=== PATIENT | male | born 1960 | race Caucasian/White ===

== ENCOUNTER 2017-06-23 10:12 | Outpatient (CLI) | payer SELFPAY | END 2017-06-23 10:13 | disposition critical access hospital (66) | LOC: EMS 10:12 | PROVIDERS: ATTEND Surgery | DX: R58 Hemorrhage, not elsewhere classified (principal); R53.1 Weakness; R63.4 Abnormal weight loss | CPT/HCPCS: A0425; A0429 ==

== ENCOUNTER 2017-06-23 10:32 | Emergency (ER) | payer SELFPAY ==
[2017-06-23 11:31] LABS: BASOPHILS # (AUTO) 0.1 10^3/uL (0.0-0.1); BASOPHILS % (AUTO) 0.7 %; EOSINOPHILS # (AUTO) 0.1 10^3/uL (0.0-0.7); EOSINOPHILS % (AUTO) 0.8 %; HGB - HEMOGLOBIN 10.7 g/dL (14.0-18.0); LYMPHOCYTES # (AUTO) 0.8 10^3/uL (1.5-3.5); LYMPHOCYTES % (AUTO) 8.6 %; MEAN CORPUSCULAR HEMOGLOBIN 23.8 pg (27.0-31.0); MEAN CORPUSCULAR HGB CONC 32.1 g/dL (32.0-36.0); MEAN CORPUSCULAR VOLUME 73.9 fL (80.0-94.0); MEAN PLATELET VOLUME 7.6 fL (7.4-11.4); MONOCYTES # (AUTO) 0.8 10^3/uL (0.0-1.0); NEUTROPHILS % (AUTO) 81.9 %; PLT - PLATELET COUNT 223 10^3/uL (130-450); RED BLOOD COUNT 4.49 10^6/uL (4.70-6.10); RED CELL DISTRIBUTION WIDTH 17.4 % (12.0-15.0); WHITE BLOOD COUNT 9.8 x10^3/uL (4.8-10.8)
[2017-06-23 11:46] LABS: BILIRUBIN,URINE NEGATIVE (NEGATIVE); GLUCOSE, URINE (UA) NEGATIVE (NEGATIVE); KETONES,URINE (UA) NEGATIVE (NEGATIVE); LEUKOCYTE ESTERASE, URINE LARGE (NEGATIVE); NITRITE,URINE POSITIVE (NEGATIVE); OCCULT BLOOD,URINE LARGE (NEGATIVE); PH,URINE 5.5 PH (5.0-7.5); PROTEIN,URINE 30 mg/dL (NEGATIVE); UROBILINOGEN,URINE 0.2 (NORMAL) E.U./dL (NORMAL)
[2017-06-23 11:48] LABS: CLARITY,URINE CLOUDY (CLEAR)
[2017-06-23 11:52] LABS: ALBUMIN 2.8 g/dL (3.2-5.5); ALBUMIN/GLOBULIN RATIO 0.7 (1.0-2.2); ALKALINE PHOSPHATASE 100 IU/L (42-121); ALT ALANINE AMINOTRANSFERASE 11 IU/L (10-60); AST ASPARTATE AMINOTRANSFERASE 12 IU/L (10-42); BILIRUBIN,TOTAL 1.2 mg/dL (0.2-1.0); BUN - BLOOD UREA NITROGEN 11 mg/dL (6-20); CALCIUM 8.4 mg/dL (8.5-10.3); CARBON DIOXIDE - CO2 23 mmol/L (21-32); CHLORIDE 98 mmol/L (101-111); CREATININE 0.9 mg/dL (0.6-1.2); GFR - MDRD 88 (>89); GLUCOSE 95 mg/dL (70-100); LIPASE < 10 U/L (22-51); SODIUM 130 mmol/L (135-145); TOTAL PROTEIN 6.9 g/dL (6.7-8.2)
[2017-06-23 11:57] LABS: BACTERIA,URINE Many /HPF (None Seen); SQUAMOUS EPITHELIAL CELL,UR FEW Squamous (<= Few)
--- NOTE | 2017-06-23 12:05 | ED Physician Documentation ---
History of Present Illness - Stated complaint Stated Complaint: WOUND - Chief complaint Chief Complaint: Wound - History obtained from History obtained from: Patient - History of Present Illness Timing: Last night Pain level max: 0 Pain level now: 0 Improved by: nothing Worsened by: nothing - Additonal information Additional information: States had a bowel resection approx 3 years ago, complicated by mutliple intraabdominal abscesses at that time. States no fevers. States had 2 small blisters on his abdomen last night, one has spontaneously drained. The other is still present. Patient is not currently following up with GI. He was seen Dr. Culver at [facility] in [place]. Last surgery was at [facility] as well. Review of Systems Ten Systems: 10 systems reviewed and negative Constitutional: reports: Chills. denies: Fever Ears: denies: Ear pain Nose: denies: Rhinorrhea / runny nose, Congestion Throat: denies: Sore throat Cardiac: denies: Chest pain / pressure Respiratory: denies: Cough, Wheezing GI: denies: Abdominal Pain, Nausea, Vomiting, Diarrhea Skin: denies: Rash Musculoskeletal: denies: Neck pain, Back pain Neurologic: denies: Headache PD PAST MEDICAL HISTORY - Past Medical History Cardiovascular: None Respiratory: None Neuro: None Endocrine/Autoimmune: None GI: Ulcers, Crohn's disease : None HEENT: None Psych: None Musculoskeletal: None Derm: None - Past Surgical History Past Surgical History: Yes General: Appendectomy Ortho: Arthroscopic surgery HEENT: Tonsil/Adenoidectomy - Present Medications Home Medications: Ambulatory Orders Medication Instructions Recorded Confirmed Ascorbate Calcium [Vitamin C] 500 mg PO DAILY 07/10/14 08/04/14 Balsalazide Disodium 750 mg PO BID 07/10/14 08/04/14 Cholecalciferol (Vitamin D3) 1,000 units PO DAILY 07/10/14 08/04/14 [Vitamin D3] Ciprofloxacin HCl [Cipro] 500 mg PO BID #14 tablet 07/10/14 08/04/14 Dexamethasone [Decadron] 4 mg PO BID #10 tablet 07/10/14 08/04/14 Iron,Carbonyl/Vit C/Vit B12/FA 1 tab PO DAILY 07/10/14 08/04/14 [Iron 100 Plus Tablet] Multivitamin [Multivitamins] 1 each PO DAILY 07/10/14 08/04/14 Promethazine [Phenergan] 25 mg PO Q6H PRN #20 tablet 07/10/14 08/04/14 Metronidazole [Flagyl] 500 mg PO BID #14 tablet 07/27/14 08/04/14 Oxycodone HCl/Acetaminophen 1 - 2 each PO Q6H PRN #15 tablet 07/27/14 08/04/14 [Percocet 5-325 mg Tablet] levoFLOXacin [Levaquin] 500 mg PO QD #7 tablet 07/27/14 08/04/14 - Allergies Allergies/Adverse Reactions: Allergies Allergy/AdvReac Type Severity Reaction Status Date / Time Penicillins Allergy Severe "HEART Verified 06/23/17 10:44 STOPPED",SEVERE RASH peanut AdvReac Unknown Verified 06/23/17 10:45 raisins, pees, alcocer AdvReac Unknown Uncoded 06/23/17 10:45 - Social History Does the pt smoke?: No Smoking Status: Never smoker Does the pt drink ETOH?: No Does the pt have substance abuse?: No - Immunizations Immunizations are current?: No - POLST Patient has POLST: No PD ED PE NORMAL - Vitals Vital signs reviewed: Yes - General General: Alert and oriented X 3, No acute distress - HEENT HEENT: Moist mucous membranes - Neck Neck: Supple, no meningeal sign - Cardiac Cardiac: RRR - Respiratory Respiratory: No respiratory distress, Clear bilaterally - Abdomen Abdomen: Soft, Other (suprapubic erythema and swelling 3x4cm. TTP. mild induration. NVI. no crepitus) - Derm Derm: Warm and dry - Neuro Neuro: Alert and oriented X 3 - Psych Psych: Normal mood, Normal affect Results - Vitals Vitals: Vital Signs - 24 hr 06/23/17 06/23/17 06/23/17 10:37 11:51 12:08 Temperature 37.6 C H Heart Rate 79 86 Respiratory 15 16 Rate Blood Pressure 103/65 105/63 O2 Saturation 97 97 06/23/17 06/23/17 12:54 15:09 Temperature Heart Rate 90 75 Respiratory 26 H 23 Rate Blood Pressure 101/64 97/60 O2 Saturation 98 Oxygen O2 Source Room air - Labs Labs: Microbiology 06/23/17 12:43 Wound Culture - Preliminary Abdomen Laboratory Tests 06/23/17 06/23/17 06/23/17 11:24 11:24 11:24 WBC 9.8 RBC 4.49 L Hgb 10.7 L Hct 33.2 L MCV 73.9 L MCH 23.8 L MCHC 32.1 RDW 17.4 H Plt Count 223 MPV 7.6 Neut # 8.0 H Lymph # 0.8 L [place] # 0.8 Eos # 0.1 Baso # 0.1 Absolute Nucleated RBC 0.00 Nucleated RBC % 0.0 Sodium 130 L Potassium 3.9 Chloride 98 L Carbon Dioxide 23 Anion Gap 9.0 BUN 11 Creatinine 0.9 Estimated GFR (MDRD) 88 L Glucose 95 Lactic Acid Calcium 8.4 L Total Bilirubin 1.2 H AST 12 ALT 11 Alkaline Phosphatase 100 Total Protein 6.9 Albumin 2.8 L Globulin 4.1 Albumin/Globulin Ratio 0.7 L Lipase < 10 L TSH 0.55 Urine Color Urine Clarity Urine pH Ur Specific [place] Urine Protein Urine Glucose (UA) Urine Ketones Urine Occult Blood Urine Nitrite Urine Bilirubin Urine Urobilinogen Ur Leukocyte Esterase Urine RBC Urine WBC Ur Squamous Epith Cells Urine Bacteria Ur Microscopic Review Urine Culture Comments 06/23/17 06/23/17 11:40 13:27 WBC RBC Hgb Hct MCV MCH MCHC RDW Plt Count MPV Neut # Lymph # [place] # Eos # Baso # Absolute Nucleated RBC Nucleated RBC % Sodium Potassium Chloride Carbon Dioxide Anion Gap BUN Creatinine Estimated GFR (MDRD) Glucose Lactic Acid 0.8 Calcium Total Bilirubin AST ALT Alkaline Phosphatase Total Protein Albumin Globulin Albumin/Globulin Ratio Lipase TSH Urine Color DARK YELLOW Urine Clarity CLOUDY Urine pH 5.5 Ur Specific [place] 1.025 Urine Protein 30 H Urine Glucose (UA) NEGATIVE Urine Ketones NEGATIVE Urine Occult Blood LARGE H Urine Nitrite POSITIVE H Urine Bilirubin NEGATIVE Urine Urobilinogen 0.2 (NORMAL) Ur Leukocyte Esterase LARGE H Urine RBC 11-25 H Urine WBC >25 H Ur Squamous Epith Cells FEW Squamous Urine Bacteria Many H Ur Microscopic Review INDICATED Urine Culture Comments INDICATED - Rads (name of study) CT abd/pelvis Radiology: Prelim report reviewed, EMP read contemporaneously, See rad report ( 1. Several loops of small bowel in the lower abdomen showing wall thickening, mucosal hyperenhancement, and surrounding hyperemia and fat stranding compatible with acute inflammatory bowel disease. 2. Several borderline dilated loops of small bowel in the upper abdomen with fluid levels may reflect low- grade/partial obstruction secondary to stricture or possibly functional obstruction. 3. Several interloop fistulae seen within small bowel loops in the lower abdomen. Probable right abdominal enterocolic fistula also noted as described above. 5. No intra-abdominal abscess. 6. An anterior abdominal wall preperitoneal abscess collection is seen extending to the skin surface. Possible enterocutaneous fistula between an anterior inflamed small bowel loop and this central preperitoneal abscess cavity. 7. Probable enterovesical fistula as described above with associated reactive cystitis. 8. Layering fluid seen within the rectum reflects diarrhea. ) PD MEDICAL DECISION MAKING - ED course Complexity details: reviewed results, re-evaluated patient, considered differential, d/w patient, d/w outside solar sales consultant ED course: Patient is a 56-year-old gentleman with a long history of Crohn's disease that is not currently following up as an outpatient or taking medications for Crohn' s. 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 Discussed the case with Dr. Castelan, [facility] GI at [phone] and recommends admission to the hospitalist service at [facility]. Patient was started on moxifloxacin and vancomycin here. I then spoke with Dr. Patricia, internal medicine at [facility] in [place] who graciously accepts in transfer at 1500. Patient will be transferred to [facility] in [place]. This document was made in part using voice recognition software. While efforts are made to proofread this document, sound alike and grammatical errors may occur. Departure - Departure Disposition: 02 Transfer Acute Care Hosp Clinical Impression: Vesico-intestinal fistula, Enterocutaneous fistula, Entero-enteric fistula, Abscess UTI (urinary tract infection) Qualifiers: Urinary tract infection type: acute cystitis Hematuria presence: without hematuria Qualified Code(s): N30.00 - Acute cystitis without hematuria Exacerbation of Crohn's disease Qualifiers: Digestive disease complication type: unspecified complication Qualified Code(s) : K50.919 - Crohn's disease, unspecified, with unspecified complications Condition: Stable
[2017-06-23] MEDS ORDERED: SODIUM CHLORIDE 0.9% 1,000 ML IV ONE ×2 (12:14)
[2017-06-23] MEDS ORDERED: IOPAMIDOL-300 100 ML VIAL ONE (12:41)
[2017-06-23] MEDS ORDERED: VANCOMYCIN INJ 1 GM in SODIUM CHLORIDE 0.9% 250 ML IV STA (13:06)
[2017-06-23] MEDS ORDERED: MOXIFLOXACIN 400MG/250ML IV 400 MG/250 ML BAG IV STA (13:06)
[2017-06-23] MEDS ORDERED: IOPAMIDOL-300 100 ML VIAL IVP ONE (13:08)
--- NOTE | 2017-06-23 13:55 | CT Report ---
EXAM: CT ABDOMEN AND PELVIS EXAM DATE: 06/23/2017 01:07 PM. CLINICAL HISTORY: Lower abd pain, swelling, h/o intra-abd abscess. COMPARISONS: 07/27/2014. TECHNIQUE: Routine helical CT imaging was performed through the abdomen and pelvis. IV contrast: ISOV UE 300 100mL. Enteric contrast: No. Reconstructions: Coronal and sagittal. In accordance with CT protocol optimization, one or more of the following dose reduction techniques w ere utilized for this exam: automated exposure control, adjustment of mA and/or KV based on patient s ize, or use of iterative reconstructive technique. FINDINGS: Lung Bases: Unchanged calcified granuloma at the right base. No new consolidation. No pleural effusio n. Liver: Normal. No masses. Gallbladder/Bile Ducts: Gallstone seen in the gallbladder. No evidence for wall thickening or pedicle cystic fluid. No biliary dilation. Spleen: Unchanged mild splenic lead to 14 cm. No focal splenic lesion seen. Pancreas: Normal. Adrenal Glands: Normal. Kidneys: Normal. No masses or hydronephrosis. Peritoneal Cavity/Bowel: Few borderline dilated small bowel loops are seen with fluid levels. There i s also few central loops of small bowel in the mid abdomen that show wall thickening with mucosal hyp erenhancement and hyperemia compatible with acute inflammation. Tethering of multiple small bowel loo ps seen in the midabdomen with suggestion of multiple interloop fistulous connections within the pinky l (3/57, 58). Possible enterocolic fistula seen between the right colon (3/58) and a small bowel loop in the midabdomen (3/60). No evidence for abscess within the intra-abdominal cavity. Few prominent/m ildly enlarged mesenteric lymph nodes are likely reactive. Pelvic Organs: Tethering of the bladder dome superiorly is seen with possible fistulous connection be tween the bladder dome and a right lower abdominal small bowel loop (3/59, 6/44). Foci of gas within the urinary bladder are seen as evidence of this. There is also urothelial enhancement of the bladder dome (3/74) which could reflect cystitis. Prostate and seminal vesicles otherwise normal. Layering f luid is seen in the rectum is evidence for diarrhea. Vasculature: No aneurysms or other significant abnormality. Bones: No significant abnormality. Other: There is rectus abdominis I stasis in the upper abdomen with central eventration containing se veral loops of small bowel. A midline lower abdominal rim-enhancing mixed gas and fluid collection is seen measuring approximately 2.8 x 5.7 cm (3/59) representing a midline preperitoneal abscess. Proba ble enterocutaneous fistulas associated with the abscess (3/59). IMPRESSION: 1. Several loops of small bowel in the lower abdomen showing wall thickening, mucosal hyperenhancemen t, and surrounding hyperemia and fat stranding compatible with acute inflammatory bowel disease. 2. Several borderline dilated loops of small bowel in the upper abdomen with fluid levels may reflect low-grade/partial obstruction secondary to stricture or possibly functional obstruction. 3. Several interloop fistulae seen within small bowel loops in the lower abdomen. Probable right abdo eleuterio enterocolic fistula also noted as described above. 5. No intra-abdominal abscess. 6. An anterior abdominal wall preperitoneal abscess collection is seen extending to the skin surface. Possible enterocutaneous fistula between an anterior inflamed small bowel loop and this central prep eritoneal abscess cavity. 7. Probable enterovesical fistula as described above with associated reactive cystitis. 8. Layering fluid seen within the rectum reflects diarrhea. RADIA The above findings were discussed with Dr. Messer by Dr. Rocco Krueger at 13:53 hrs on 06/23/17. Referring Provider Line: [phone] SITE ID: [id number]
[2017-06-23 16:27] VITALS: BP 94/51
== END 2017-06-23 16:17 | disposition short-term general hospital (02) ==
LOC: EDUNIT# → ED 10:32
DX: K63.2 Fistula of intestine (principal); N32.1 Vesicointestinal fistula; L02.211 Cutaneous abscess of abdominal wall; K50.919 Crohn's disease, unspecified, with unspecified complications; N30.00 Acute cystitis without hematuria; Z87.11 Personal history of peptic ulcer disease
CPT/HCPCS: 74177; 80053; 81001; 83605; 83690; 84443; 85025; 87070; 87077; 87086; 87181; 87205; 96361; 96365; 96366; 96367; 99284; 99285; J3370; Q9967; 36415; 81003

== ENCOUNTER 2017-06-23 16:20 | Outpatient (CLI) | payer SELFPAY | END 2017-06-23 16:21 | disposition short-term general hospital (02) | LOC: EMS 16:20 | PROVIDERS: ATTEND Surgery | DX: K63.2 Fistula of intestine (principal) | CPT/HCPCS: A0425; A0426 ==

== ENCOUNTER 2017-08-06 10:48 | Inpatient (IN) | payer SELFPAY ==
[2017-08-06] MEDS ORDERED: SODIUM CHLORIDE 0.9% 1,000 ML IV ONE (11:48)
[2017-08-06 12:14] LABS: CREATININE 0.8 mg/dL (0.6-1.2)
--- NOTE | 2017-08-06 12:40 | ED Physician Documentation ---
History of Present Illness - Stated complaint Stated Complaint: ABSCESS/BLEEDING - Chief complaint Chief Complaint: Wound - Additonal information Additional information: hx from pt and EMR and records from Prov Gregg 56 male hx crohns normally takes no meds for same (2/[address] to pay for, too young for medicare, too much income for medicaid, 's work does not provide him medical benefits) in 2014 had a enteric - cutaneous fistula and abscess and sepsis in June of this year developed now fistula and drainage - seen in [facility] ER, CT scan done - sent to [facility], had some hypotension, txed with vanco meropenem and flagyl, GI consulted, surgery consulted, no surgery needed, dc on prednisone and cipro and flagyl and had one fup with GI now done with ab and steroids pt returns to ED today with new heavy purulent dc from fustual site and abd pain and swelling no fever but tachy upon arrival no NV Review of Systems Constitutional: reports: Fatigue. denies: Fever Cardiac: denies: Chest pain / pressure Respiratory: denies: Dyspnea GI: reports: Abdominal Pain. denies: Nausea, Vomiting, Diarrhea Neurologic: denies: Generalized weakness Immunocompromised: denies: Immunocompromised PD PAST MEDICAL HISTORY - Past Medical History Cardiovascular: None Respiratory: None Neuro: None Endocrine/Autoimmune: None GI: Ulcers, Crohn's disease : None HEENT: None Psych: None Musculoskeletal: None Derm: None - Past Surgical History Past Surgical History: Yes General: Appendectomy Ortho: Arthroscopic surgery HEENT: Tonsil/Adenoidectomy - Present Medications Home Medications: Ambulatory Orders Medication Instructions Recorded Confirmed Budesonide [Budesonide EC] 9 mg PO DAILY 08/06/17 08/06/17 Sulfasalazine [Sulfasalazine Dr] 500 mg PO QID 08/06/17 08/06/17 - Allergies Allergies/Adverse Reactions: Allergies Allergy/AdvReac Type Severity Reaction Status Date / Time Penicillins Allergy Severe "HEART Verified 08/06/17 11:00 STOPPED",SEVERE RASH peanut AdvReac Unknown Verified 08/06/17 11:00 raisins, pees, alcocer AdvReac Unknown Uncoded 08/06/17 11:00 - Social History Does the pt smoke?: No Smoking Status: Never smoker Does the pt drink ETOH?: No Does the pt have substance abuse?: No - Immunizations Immunizations are current?: No - POLST Patient has POLST: No PD ED PE NORMAL - Vitals Vital signs reviewed: Yes - General General: Alert and oriented X 3 - HEENT HEENT: Atraumatic - Neck Neck: Supple, no meningeal sign - Cardiac Cardiac: RRR - Respiratory Respiratory: No respiratory distress - Abdomen Abdomen: Other (some swellign below umbilicus, starinage from a prior incidion site approx 2 cm blow umlicus and possib;le second drainage site 2 below that, drainage is thick purulent and blood, no obvious fecal contents, fould smelling) - Derm Derm: Normal color, Other (no cellulitis to abd wall) - Neuro Neuro: Alert and oriented X 3 Results - Vitals Vitals: Vital Signs - 24 hr 08/06/17 08/06/17 08/06/17 10:54 14:21 16:13 Temperature 36.6 C 36.6 C Heart Rate 116 H 85 86 Respiratory 16 16 16 Rate Blood Pressure 104/75 114/76 103/70 O2 Saturation 100 100 97 Oxygen O2 Source Room air - Labs Labs: Microbiology 08/06/17 11:43 Wound Culture - Preliminary Other - Abdominal Laboratory Tests 08/06/17 08/06/17 08/06/17 11:52 11:52 12:07 WBC 8.8 RBC 5.24 Hgb 13.8 L Hct 42.3 MCV 80.7 MCH 26.4 L MCHC 32.7 RDW 20.8 H Plt Count 151 MPV 8.8 Neut # 7.2 H Lymph # 0.9 L [place] # 0.6 Eos # 0.1 Baso # 0.0 Absolute Nucleated RBC 0.00 Nucleated RBC % 0.0 Sodium 136 Potassium 4.1 Chloride 97 L Carbon Dioxide 29 Anion Gap 10.0 BUN 11 Creatinine 0.8 Estimated GFR (MDRD) 100 Glucose 97 Lactic Acid 0.9 Calcium 9.0 - Rads (name of study) CT AP with IV con Radiology: See rad report (hypodensity ant abd wall periumbilical region c/w fluid decrease from CT in June, thick walled small bowel loops midabd with associated fat stranding, dec of inflammatory changes since June, appears to have areas of fistulous communication between bowel loops, no abscess, gallstones, mild spenomegaly, mild heaptc steatosis) PD MEDICAL DECISION MAKING - ED course ED course: 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 but no abscess only prior surgery appy and drainage of abscess in [address] today- pt had large amt of purulent dc so may have spont drained review of June cultures indicate drainage grew pansensitive E coli UA from June also grew E co raising concern for enteric vesicular fistula as well today tachy but afebrile nl lactate not hypotensive d/w [facility] surgery who did not feel [facility] had resources for this pt spoke to Shashi Escobedo hospitalist who would accept pt but expressed concern that they are not really helping pt intermediate as he continues to be lost to fup due to no insurance (too young for medicare, too much income for medicaid, ' s work does not provide him medical benefits) so called [facility] which has resources/safety net options other facilities do not spoke to GI attending Dr Cade who advises the [facility] can help this pt has programs to get him onto appropriate outpt GI meds - advises they will get pt scoped and medically and nutritionally optimized for anticipated surgery to repair fistula, he recommends cipro flagyl and, if not septic, solumedrol 40 QD to dec bowel swelling which will dec pressure diff and thus decrease amt of discharge also spoke to [facility] medicine attending Dr Brinda Hernandez who will accept pt there are no beds at [facility] tonight but are anticipated tomorrow Dr Hernandez will be on again tomorrow at 8 AM and will be the accepting physician for transfer images have been pushed to [facility] already on prior visits for same pt has initially been stable but then later developed hypotension and worsening sx - so do not think he can be safely dced home and fup as an outpt will need to admit pt to [facility] overnight pending transfer availability spoke to Dr Padilla hospitalist who agrees to admit pt for tonight Departure - Departure Disposition: 66 [facility] DC/Xfer Clinical Impression: Enterocutaneous fistula Crohns disease Qualifiers: Gastrointestinal tract location: small intestine Digestive disease complication type: with fistula Qualified Code(s): K50.013 - Crohn's disease of small intestine with fistula Condition: Fair Discharge Date/Time: 08/06/17 18:12
[2017-08-06] MEDS ORDERED: IOPAMIDOL-300 100 ML VIAL ONE (12:49)
--- NOTE | 2017-08-06 13:34 | CT Report ---
EXAM: CT ABDOMEN AND PELVIS EXAM DATE: 08/06/2017 01:09 PM. CLINICAL HISTORY: Abdominal pain COMPARISONS: 06/23/2017. TECHNIQUE: Routine helical CT imaging was performed through the abdomen and pelvis. IV contrast: 100C C ISOVUE 300. Enteric contrast: No. Reconstructions: Coronal and sagittal. In accordance with CT protocol optimization, one or more of the following dose reduction techniques w ere utilized for this exam: automated exposure control, adjustment of mA and/or KV based on patient s ize, or use of iterative reconstructive technique. FINDINGS: Lung Bases: No acute infiltrate. Normal heart size. Liver: There is mild hepatic steatosis. No focal hepatic lesions are seen. Gallbladder/Bile Ducts: There is cholelithiasis. There is moderate distention of the gallbladder. No evidence of gallbladder wall thickening. Spleen: There is mild splenomegaly. Pancreas: Normal. Adrenal Glands: Normal. Kidneys: Normal. No masses or hydronephrosis. Peritoneal Cavity/Bowel: There are loops of thick-walled small bowel within the midabdomen. There is associated mesenteric architectural distortion with ill-defined soft tissue density between the segme nts of bowel (for example image 55 series 3). There is no evidence of drainable intra-abdominal absce ss. There is moderate stool within colon. There are subcentimeter mesenteric lymph nodes. There is a stable anterior abdominal wall hernia into which small bowel protrudes. No evidence of appendicitis. Pelvic Organs: No acute pelvic organ abnormalities are seen. Vasculature: No aneurysms or other significant abnormality. Bones: No significant abnormality. Other: There is hypodensity within the anterior abdominal wall which could represent small amount of subcutaneous/abdominal wall fluid (for example image 60 series 101). IMPRESSION: 1. There is hypodensity within the anterior abdominal wall in the periumbilical region which could re present small amount of residual fluid. Interval decrease in volume of fluid in this area. 2. There are thick-walled small bowel loops within the midabdomen. There is some associated fat stran ding. Interval decrease in inflammatory change as compared to the prior study. Architectural distorti on between the loops of thick-walled bowel with ill-defined adjacent soft tissue likely reflects area s of fistulous communication between bowel loops. No intra-abdominal abscess is seen. 3. There is moderate stool within colon. 4. There is mild hepatic steatosis. 5. There is cholelithiasis. 6. There is mild splenomegaly. RADIA Referring Provider Line: [phone] SITE ID: [id number]
[2017-08-06 14:28] LABS: BASOPHILS % (AUTO) 0.2 %; EOSINOPHILS # (AUTO) 0.1 10^3/uL (0.0-0.7); EOSINOPHILS % (AUTO) 0.8 %; HGB - HEMOGLOBIN 13.8 g/dL (14.0-18.0); LYMPHOCYTES # (AUTO) 0.9 10^3/uL (1.5-3.5); LYMPHOCYTES % (AUTO) 10.6 %; MEAN CORPUSCULAR HEMOGLOBIN 26.4 pg (27.0-31.0); MEAN CORPUSCULAR HGB CONC 32.7 g/dL (32.0-36.0); MEAN CORPUSCULAR VOLUME 80.7 fL (80.0-94.0); MEAN PLATELET VOLUME 8.8 fL (7.4-11.4); MONOCYTES # (AUTO) 0.6 10^3/uL (0.0-1.0); MONOCYTES % (AUTO) 6.9 %; NEUTROPHILS # (AUTO) 7.2 10^3/uL (1.5-6.6); NEUTROPHILS % (AUTO) 81.5 %; PLT - PLATELET COUNT 151 10^3/uL (130-450); RED BLOOD COUNT 5.24 10^6/uL (4.70-6.10); RED CELL DISTRIBUTION WIDTH 20.8 % (12.0-15.0); WHITE BLOOD COUNT 8.8 x10^3/uL (4.8-10.8)
[2017-08-06] MEDS ORDERED: D5.45NS W/20 MEQ KCL 1,000 ML IV STA (15:04)
[2017-08-06] MEDS ORDERED: CIPROFLOXACIN 400 MG/200 ML 200 ML IV ONE (15:08)
[2017-08-06] MEDS ORDERED: metroNIDAZOLE 500 MG/100 ML 500 MG/100 ML BAG IV ONE (15:08)
[2017-08-06] MEDS ORDERED: IOPAMIDOL-300 100 ML VIAL IVP ONE (16:40)
[2017-08-06] MEDS ORDERED: methylPREDNISolone SUCCINATE 40 MG/ML VIAL IVP STA (17:07)
[2017-08-06] MEDS ORDERED: ONDANSETRON 4 MG/2 ML VIAL IVP PRN (17:19)
[2017-08-06] MEDS ORDERED: PROMETHAZINE 25 MG/1 ML VIAL IM PRN (17:19)
[2017-08-06] MEDS ORDERED: PROCHLORPERAZINE 10 MG/2 ML VIAL IVP PRN (17:19)
[2017-08-06] MEDS ORDERED: MORPHINE 2 MG/ML SYRINGE IVP PRN (17:19)
--- NOTE | 2017-08-06 17:31 | HISTORY & PHYSICAL EXAMINATION ---
Chief Complaint - Chief Complaint Chief Complaint: Abdominal drainage History of Present Illness - Admitted From Admitted From:: Emergency department - History Obtained From Records Reviewed: Yes History obtained from: Patient and patient's Exam Limitations: None - History of Present Illness HPI Comment/Other: Patient is a 56-year-old gentleman with a past medical history significant for Crohn's disease with history of abdominal abscesses, enterocutaneous fistulas and entero-enteral fistulas who presents to the emergency department with a chief complaint of drainage from his abdominal wall. The patient was seen in our emergency department 6 weeks ago at which time he had significant drainage from an enterocutaneous fistula and had to be transferred to [facility]. There the patient was treated for 5 days with IV steroids, IV antibiotics and fluids. The patient was discharged home on oral antibiotics and oral steroids. He followed up with gastroenterology and was placed on a tapered dose of steroids. The patient states that he completed his steroids yesterday and today he began having increasing drainage from the abdominal wall. This time he states it was not as bad as it was 6 weeks ago but it had completely resolved until he stopped taking the steroids yesterday. The patient otherwise had no abdominal pain, no fevers, no chills and no diarrhea or nausea or vomiting. The patient was concerned about this drainage. The patient also stated that he was having a hard time following up with gastroenterology secondary to the cost of the appointments as the patient himself does not have insurance. The patient denies any headaches, blurred vision, runny nose, sore throat, nasal congestion, difficulty swallowing, chest pain, shortness of air, orthopnea , PND, increased lower extremity swelling, joint pain, muscle aches, back pain, urinary urgency, urinary frequency, dysuria, neck stiffness, focal neurologic deficits, rashes, recent unintentional weight loss, changes in his appetite or any night sweats. On presentation to the emergency department the patient was tachycardic and had a borderline blood pressure but otherwise was afebrile and was not in any respiratory distress. The patient's lab work was all within normal limits. The patient's hemoglobin was 13.8 and WBC was 8.8. The patient's electrolytes were all within normal limits. The patient's lactic acid was 0.9. The patient underwent a CT of his abdomen and pelvis which revealed a hypodensity within the anterior abdominal wall in the periumbilical region which could represent a small amount of residual fluid. Interval decrease in volume of fluid in this area. There was also a thick-walled small bowel loop within the mid abdomen. There was some associated fat stranding. Interval decrease in inflammatory changes compared to the prior study. Architectural distortion between the loops of thick walled bowel with ill-defined adjacent soft tissue likely reflecting areas of fistulous communication between bowel loops. With no intra- abdominal abscess. The emergency room physician spoke with hospitalist at [facility] regarding transfer of the patient who advised that the patient be transferred to the [facility] as they would not be able to provide him with the care he needs given his lack of insurance whereas the [facility] has greater resources. The emergency room physician contacted the senior mobile solutions architect from the [facility] Dr. Cade who accepted the patient in transfer but stated a bed would not be available until the next morning. The senior mobile solutions architect did advise that the patient needed to be scoped and medically and nutritionally optimized for anticipated surgery to repair fistula, he recommended Cipro, Flagyl and if the patient was not septic then Solu-Medrol 40 mg daily. Given that no bed will be available till the next morning we accepted the patient here at [facility] overnight until bed was available at the [facility]. History - Past Medical History Cardiovascular: reports: None Respiratory: reports: None Neuro: reports: None Endocrine/Autoimmune: reports: None GI: reports: Ulcers, Crohn's disease (With poor compliance and follow up) : reports: None HEENT: reports: None Psych: reports: None Musculoskeletal: reports: None Derm: reports: None MRSA Hx?: No Other Past Medical History: Multiple abdominal abscesses and enterocutaneious fistulas secondary to crohns - Past Surgical History General: reports: Appendectomy Ortho: reports: Arthroscopic surgery HEENT: reports: Tonsil/Adenoidectomy - Family & Social History Family History: Mother: CAD, Father: Cancer Family History Comment/Other: The patient's father, paternal grandfather and paternal great grandfather all had Crohn's disease. His dad had prostate cancer. Mom had coronary artery disease. He had one sister with breast cancer. Living arrangement: At home Living Situation: With spouse/s.o. Social History Notes: The patient is and has 1 son with his first . 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 The patient used chewing tobacco from the age of 22 until just a few years ago. He does not smoke cigarettes. He drinks alcohol occasionally usually just a glass of wine. He denies any illicit drug use. - POLST Patient has POLST: No POLST Status: Full Code Meds/Allgy - Home Medications Home Medications: Ambulatory Orders Medication Instructions Recorded Confirmed Budesonide [Budesonide EC] 9 mg PO DAILY 08/06/17 08/06/17 Sulfasalazine [Sulfasalazine Dr] 500 mg PO QID 08/06/17 08/06/17 - Allergies Allergies/Adverse Reactions: Allergies Allergy/AdvReac Type Severity Reaction Status Date / Time Penicillins Allergy Severe "HEART Verified 08/06/17 11:00 STOPPED",SEVERE RASH peanut AdvReac Unknown Verified 08/06/17 11:00 raisins, pees, alcocer AdvReac Unknown Uncoded 08/06/17 11:00 Review of Systems - Other Findings Other Findings: A comprehensive review of systems was performed the pertinent positives and negatives are stated above in the HPI and the remainder of the review of systems is negative. Exam - Vital Signs Vital Signs: Vital Signs x48h Temp Pulse Resp BP Pulse Ox 08/06/17 16:13 36.6 C 86 16 103/70 97 08/06/17 14:21 85 16 114/76 100 08/06/17 10:54 36.6 C 116 H 16 104/75 100 - Physical Exam General Appearance: positive: No acute distress, Alert Eyes Bilateral: positive: Normal inspection, PERRL, EOMI, No lid inflammation, Conjunctivae nml, No scleral icterus ENT: positive: ENT inspection nml, Pharynx nml, No signs of dehydration. negative: Purulent nasal drainage, Pharyngeal erythema, Oral lesions Neck: positive: Nml inspection, Thyroid nml, No JVD, Trachea midline. negative : Thyromegaly, Lymphadenopathy (R), Lymphadenopathy (L), Stiff neck, Carotid bruit, Tracheal deviation Respiratory: positive: Chest non-tender, No respiratory distress, Breath sounds nml. negative: Wheezes, Rales, Rhonchi Cardiovascular: positive: Regular rate & rhythm, No murmur, No gallop Peripheral Pulses: positive: 2+ Abdomen: positive: Non-tender, Nml bowel sounds, No distention, Other (2 opening below his umbilicus with drainage from the lowest one, no surrounding erythema or infection). negative: Guarding, Rebound, Hepatomegaly Back: positive: Nml inspection. negative: CVA tenderness (R), CVA tenderness (L ) Skin: positive: Color nml, No rash, Warm. negative: Cyanosis, Diaphoresis, Pallor Extremities: positive: Non-tender, Full ROM, Nml appearance, No pedal edema Neurologic/Psychiatric: positive: Oriented x3, CN's nml (2-12), Motor nml, Sensation nml, Mood/affect nml Conclusion/Plan - Problem List (1) Crohn's colitis Conclusion/Plan: Patient has history of Crohn's colitis with poor compliance and loss of follow- up due to insurance issues. The patient was recently hospitalized at [facility] for a Crohn's flare with fistula formation and abscess. The patient was evaluated by gastroenterology and surgery and had follow-up with GI after hospitalization however patient failed to follow-up. The patient now returns with drainage from his umbilicus. 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 The emergency room physician spoke with gastroenterology at the [facility] who accept the patient in transfer however did not have a bed today. The patient will be admitted to our hospital until a bed is found. The advice of the senior mobile solutions architect was to start the patient on IV Cipro, IV Flagyl and IV Solu- Medrol. Plan: Start IV Cipro and IV Flagyl along with IV Solu-Medrol IV fluids N.p.o. Transfer to [facility] once a bed is available for GI consultation and potential treatment with immunosuppressive therapy. Qualifiers: Digestive disease complication type: with fistula Qualified Code(s): K50.113 - Crohn's disease of large intestine with fistula (2) Entero-enteric fistula Conclusion/Plan: Patient has history of Crohn's colitis with poor compliance and loss of follow- up due to insurance issues. The patient was recently hospitalized at [facility] for a Crohn's flare with fistula formation and abscess. The patient was evaluated by gastroenterology and surgery and had follow-up with GI after hospitalization however patient failed to follow-up. The patient now returns with drainage from his umbilicus. 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 The emergency room physician spoke with gastroenterology at the [facility] who accept the patient in transfer however did not have a bed today. The patient will be admitted to our hospital until a bed is found. The advice of the senior mobile solutions architect was to start the patient on IV Cipro, IV Flagyl and IV Solu- Medrol. Plan: Start IV Cipro and IV Flagyl along with IV Solu-Medrol IV fluids N.p.o. Transfer to [facility] once a bed is available for GI consultation and potential treatment with immunosuppressive therapy. Colonoscopy and surgery will be needed to repair fistula (3) Enterocutaneous fistula Conclusion/Plan: Patient has history of Crohn's colitis with poor compliance and loss of follow- up due to insurance issues. The patient was recently hospitalized at [facility] for a Crohn's flare with fistula formation and abscess. The patient was evaluated by gastroenterology and surgery and had follow-up with GI after hospitalization however patient failed to follow-up. The patient now returns with drainage from his umbilicus. 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 The emergency room physician spoke with gastroenterology at the [facility] who accept the patient in transfer however did not have a bed today. The patient will be admitted to our hospital until a bed is found. The advice of the senior mobile solutions architect was to start the patient on IV Cipro, IV Flagyl and IV Solu- Medrol. Plan: Start IV Cipro and IV Flagyl along with IV Solu-Medrol IV fluids N.p.o. Transfer to [facility] once a bed is available for GI consultation and potential treatment with immunosuppressive therapy. Colonoscopy and surgery will be needed to repair fistula - Lab Results Lab results reviewed: Yes Fish Bones: 08/06/17 11:52 08/06/17 11:52 Other Lab Results: Laboratory Results WBC 8.8 x10^3/uL (4.8-10.8) 08/06/17 11:52 RBC 5.24 10^6/uL (4.70-6.10) 08/06/17 11:52 Hgb 13.8 g/dL (14.0-18.0) L 08/06/17 11:52 Hct 42.3 % (42.0-52.0) 08/06/17 11:52 MCV 80.7 fL (80.0-94.0) 08/06/17 11:52 MCH 26.4 pg (27.0-31.0) L 08/06/17 11:52 MCHC 32.7 g/dL (32.0-36.0) 08/06/17 11:52 RDW 20.8 % (12.0-15.0) H 08/06/17 11:52 Plt Count 151 10^3/uL (130-450) 08/06/17 11:52 MPV 8.8 fL (7.4-11.4) 08/06/17 11:52 Neut # 7.2 10^3/uL (1.5-6.6) H 08/06/17 11:52 Lymph # 0.9 10^3/uL (1.5-3.5) L 08/06/17 11:52 Mckinley # 0.6 10^3/uL (0.0-1.0) 08/06/17 11:52 Eos # 0.1 10^3/uL (0.0-0.7) 08/06/17 11:52 Baso # 0.0 10^3/uL (0.0-0.1) 08/06/17 11:52 Absolute Nucleated RBC 0.00 x10^3/uL 08/06/17 11:52 Nucleated RBC % 0.0 /100WBC 08/06/17 11:52 Sodium 136 mmol/L (135-145) 08/06/17 11:52 Potassium 4.1 mmol/L (3.5-5.0) 08/06/17 11:52 Chloride 97 mmol/L (101-111) L 08/06/17 11:52 Carbon Dioxide 29 mmol/L (21-32) 08/06/17 11:52 Anion Gap 10.0 (6-13) 08/06/17 11:52 BUN 11 mg/dL (6-20) 08/06/17 11:52 Creatinine 0.8 mg/dL (0.6-1.2) 08/06/17 11:52 Estimated GFR (MDRD) 100 (>89) 08/06/17 11:52 Glucose 97 mg/dL (70-100) 08/06/17 11:52 Lactic Acid 0.9 mmol/L (0.5-2.2) 08/06/17 12:07 Calcium 9.0 mg/dL (8.5-10.3) 08/06/17 11:52 - Diagnostic Imaging Results Diagnostic Imaging Results: positive: Final report reviewed Diagnostic Imaging Results Comments: CT abdomen/pelvis Impression: 1. There is hypodensity within the anterior abdominal wall in the periumbilical region which could represent small amount of residual fluid. Interval decrease in volume of fluid in this area. 2. There are thick walled small bowel loops within the mid abdomen. There is small associated fat stranding. Interval decrease in inflammatory change as compared to the prior study. Architectural distortion between the loops of thick walled bowel with ill-defined adjacent soft tissue likely reflects areas of fistulous communication between bowel loops. No intra-abdominal abscess is seen. 3. There is moderate stool within the colon. 4. There is mild hepatic steatosis. 5. There is cholelithiasis. 6. There is mild splenomegaly. Core Measures - Anticipated LOS I expect patient to be DC'd or transferred within 96 hours.: Yes - DVT/VTE - Prophylaxis VTE/DVT Prophylaxis med ordered at admit?: Yes
[2017-08-06] MEDS: D5NS W/20 MEQ KCL 1,000 ML IV SCH (19:34)
[2017-08-06] MEDS: SODIUM CHLORIDE FLUSH 0.9% 10 ML SYRINGE IVP PRN (19:35)
[2017-08-06] MEDS ORDERED: methylPREDNISolone SUCCINATE 40 MG/ML VIAL IVP SCH (22:00)
[2017-08-06] MEDS: metroNIDAZOLE 500 MG/100 ML 500 MG/100 ML BAG IV SCH (22:37)
[2017-08-07] MEDS: SODIUM CHLORIDE FLUSH 0.9% 10 ML SYRINGE IVP SCH ×2 (01:05→08:36)
[2017-08-07] MEDS ORDERED: CIPROFLOXACIN 400 MG/200 ML 200 ML IV SCH (03:00)
[2017-08-07] MEDS: metroNIDAZOLE 500 MG/100 ML 500 MG/100 ML BAG IV SCH ×2 (04:56→11:58)
[2017-08-07 05:28] LABS: BASOPHILS % (AUTO) 0.1 %; HGB - HEMOGLOBIN 11.5 g/dL (14.0-18.0); LYMPHOCYTES # (AUTO) 0.7 10^3/uL (1.5-3.5); LYMPHOCYTES % (AUTO) 11.1 %; MEAN CORPUSCULAR HEMOGLOBIN 25.4 pg (27.0-31.0); MEAN CORPUSCULAR HGB CONC 31.7 g/dL (32.0-36.0); MEAN CORPUSCULAR VOLUME 80.3 fL (80.0-94.0); MEAN PLATELET VOLUME 8.2 fL (7.4-11.4); MONOCYTES # (AUTO) 0.2 10^3/uL (0.0-1.0); MONOCYTES % (AUTO) 3.8 %; NEUTROPHILS # (AUTO) 5.5 10^3/uL (1.5-6.6); PLT - PLATELET COUNT 154 10^3/uL (130-450); RED BLOOD COUNT 4.51 10^6/uL (4.70-6.10); WHITE BLOOD COUNT 6.4 x10^3/uL (4.8-10.8)
[2017-08-07 05:42] LABS: ALBUMIN 2.7 g/dL (3.2-5.5); ALBUMIN/GLOBULIN RATIO 0.8 (1.0-2.2); BILIRUBIN,TOTAL 0.2 mg/dL (0.2-1.0); CALCIUM 8.6 mg/dL (8.5-10.3); CREATININE 0.7 mg/dL (0.6-1.2); MAGNESIUM 1.9 mg/dL (1.7-2.8)
[2017-08-07] MEDS: SODIUM CHLORIDE FLUSH 0.9% 10 ML SYRINGE IVP PRN (06:50)
[2017-08-07] MEDS ORDERED: PANTOPRAZOLE 40 MG VIAL IVP SCH (07:00)
[2017-08-07 07:48] VITALS: BP 107/67
[2017-08-07] MEDS: D5NS W/20 MEQ KCL 1,000 ML IV SCH (08:34)
[2017-08-07] MEDS ORDERED: POLYETHYLENE GLYCOL 3350 17 GM PACKET PO SCH (09:00)
[2017-08-07] MEDS ORDERED: ENOXAPARIN 40 MG/0.4 ML SYRINGE SUBQ SCH (09:00)
[2017-08-07] MEDS ORDERED: methylPREDNISolone SUCCINATE 40 MG/ML VIAL IVP SCH (09:00)
--- NOTE | 2017-08-07 11:22 | Discharge Plan ---
Discharge Plan Disposition: 02 Transfer Acute Care Hosp Condition: Fair No Smoking: If you smoke, Please STOP! Call for help. Follow-up with: Edgardo Foote DO [Primary Care Provider] -
--- NOTE | 2017-08-07 11:39 | DISCHARGE SUMMARY ---
Discharge Summary Admit Date: 08/06/17 Discharge Date: 08/07/17 Discharging Provider: Kamar Padilla MD Primary Care Provider: Edgardo Foote MD Code Status: Attempt Resuscitation Condition at Discharge: Fair Discharge Disposition: 02 Transfer Acute Care Hosp Discharge Facility Name: [facility] - Dr Hernandez - DIAGNOSES Admission Diagnoses: 1. Crohn's colitis 2. Enteroenteric fistula 3. Enterocutaneous fistula Discharge Diagnoses with Status of Each Condition: 1. 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 The patient was seen in our emergency department 6 weeks ago at which time he had significant drainage from an enterocutaneous fistula and had to be transferred to [facility]. There the patient was treated for 5 days with IV steroids, IV antibiotics and fluids. The patient was discharged home on oral antibiotics and oral steroids. He followed up with gastroenterology and was placed on a tapered dose of steroids. The patient states that he completed his steroids yesterday and today he began having increasing drainage from the abdominal wall. This time he states it was not as bad as it was 6 weeks ago but it had completely resolved until he stopped taking the steroids yesterday. The patient otherwise had no abdominal pain, no fevers, no chills and no diarrhea or nausea or vomiting. The patient was concerned about this drainage. The patient also stated that he was having a hard time following up with gastroenterology secondary to the cost of the appointments as the patient himself does not have insurance. The patient denies any headaches, blurred vision, runny nose, sore throat, nasal congestion, difficulty swallowing, chest pain, shortness of air, orthopnea , PND, increased lower extremity swelling, joint pain, muscle aches, back pain, urinary urgency, urinary frequency, dysuria, neck stiffness, focal neurologic deficits, rashes, recent unintentional weight loss, changes in his appetite or any night sweats. On presentation to the emergency department the patient was tachycardic and had a borderline blood pressure but otherwise was afebrile and was not in any respiratory distress. The patient's lab work was all within normal limits. The patient's hemoglobin was 13.8 and WBC was 8.8. The patient's electrolytes were all within normal limits. The patient's lactic acid was 0.9. The patient underwent a CT of his abdomen and pelvis which revealed a hypodensity within the anterior abdominal wall in the periumbilical region which could represent a small amount of residual fluid. Interval decrease in volume of fluid in this area. There was also a thick-walled small bowel loop within the mid abdomen. There was some associated fat stranding. Interval decrease in inflammatory changes compared to the prior study. Architectural distortion between the loops of thick walled bowel with ill-defined adjacent soft tissue likely reflecting areas of fistulous communication between bowel loops. With no intra- abdominal abscess. The emergency room physician spoke with hospitalist at [facility] regarding transfer of the patient who advised that the patient be transferred to the [facility] as they would not be able to provide him with the care he needs given his lack of insurance whereas the [facility] has greater resources. The emergency room physician contacted the timber hewer from the [facility] Dr. Cade who accepted the patient in transfer but stated a bed would not be available until the next morning. The timber hewer did advise that the patient needed to be scoped and medically and nutritionally optimized for anticipated surgery to repair fistula, he recommended Cipro, Flagyl and if the patient was not septic then Solu-Medrol 40 mg daily. Given that no bed will be available till the next morning we accepted the patient here at [facility] overnight until bed was available at the [facility]. - HOSPITAL COURSE Hospital Course: Over the course of the hospitalization the patient remained stable. The patient 's drainage from the enterocutaneous fistula was serosanguineous this morning. The patient did not have any fevers and vital signs remained stable. The patient's blood pressure did run low normal and patient was continued on IV fluids. The patient's lab work remained unremarkable as he had a normal lactic acid and normal CBC with a normal white blood cell count. The patient had no complaints of pain, diarrhea or fevers over the course of the hospitalization. The patient was eating and drinking well and had no issues with nausea or vomiting. According to the discharge summary from [facility] the plan for the patient was to get him a Crohn's specialist surgeon and have him establish care with a primary care physician however the patient has not been successful in doing so secondary to lack of insurance. The reason for transfer to the [facility] is for patient to receive higher level of care and consultation from a timber hewer and surgeon to devise a plan for the patient given his lack of insurance so that his fistulas can be taken care of. The patient was placed on IV ciprofloxacin, IV Flagyl and IV Solu- Medrol which he has been tolerating well. At the time of transfer the patient was in stable condition. - ALLERGIES Allergies/Adverse Reactions: Allergies Allergy/AdvReac Type Severity Reaction Status Date / Time Penicillins Allergy Severe "HEART Verified 08/06/17 11:00 STOPPED",SEVERE RASH peanut AdvReac Unknown Verified 08/06/17 11:00 raisins, pelaisha, alcocer AdvReac Unknown Uncoded 08/06/17 11:00 - MEDICATIONS Home Medications: Ambulatory Orders Medication Instructions Recorded Confirmed Budesonide [Budesonide EC] 9 mg PO DAILY 08/06/17 08/06/17 Sulfasalazine [Sulfasalazine Dr] 500 mg PO QID 08/06/17 08/06/17 - PHYSICAL EXAM AT DISCHARGE General Appearance: positive: No acute distress, Alert Eyes Bilateral: positive: Normal inspection, PERRL, EOMI, No lid inflammation, Conjunctivae nml, No scleral icterus ENT: positive: ENT inspection nml, Pharynx nml, Dry mucous membranes. negative : Purulent nasal drainage, Pharyngeal erythema, Oral lesions Neck: positive: Nml inspection, Thyroid nml, No JVD, Trachea midline. negative : Thyromegaly, Lymphadenopathy (R), Lymphadenopathy (L), Stiff neck, Carotid bruit, Tracheal deviation Respiratory: positive: Chest non-tender, No respiratory distress, Breath sounds nml. negative: Wheezes, Rales, Rhonchi Cardiovascular: positive: Regular rate & rhythm, No murmur, No gallop Peripheral Pulses: positive: 2+ Abdomen: positive: Non-tender, Nml bowel sounds, No distention, Other (patient has 2 openings below his umbilicus the lower one has serosanginous drainage from it but no signs of surrouding infection). negative: Guarding, Rebound, Hepatomegaly Back: positive: Nml inspection. negative: CVA tenderness (R), CVA tenderness (L ) Skin: positive: Color nml, No rash, Warm. negative: Cyanosis, Diaphoresis, Pallor, Skin rash Extremities: positive: Non-tender, Full ROM, Nml appearance, No pedal edema Neurologic/Psychiatric: positive: Oriented x3, CN's nml (2-12), Motor nml, Sensation nml, Mood/affect nml - LABS Result Diagrams: 08/07/17 05:15 08/07/17 05:15 Other Lab Results: Laboratory Results WBC 6.4 x10^3/uL (4.8-10.8) 08/07/17 05:15 RBC 4.51 10^6/uL (4.70-6.10) L 08/07/17 05:15 Hgb 11.5 g/dL (14.0-18.0) L 08/07/17 05:15 Hct 36.2 % (42.0-52.0) L 08/07/17 05:15 MCV 80.3 fL (80.0-94.0) 08/07/17 05:15 MCH 25.4 pg (27.0-31.0) L 08/07/17 05:15 MCHC 31.7 g/dL (32.0-36.0) L 08/07/17 05:15 RDW 20.0 % (12.0-15.0) H 08/07/17 05:15 Plt Count 154 10^3/uL (130-450) 08/07/17 05:15 MPV 8.2 fL (7.4-11.4) 08/07/17 05:15 Neut # 5.5 10^3/uL (1.5-6.6) 08/07/17 05:15 Lymph # 0.7 10^3/uL (1.5-3.5) L 08/07/17 05:15 [place] # 0.2 10^3/uL (0.0-1.0) 08/07/17 05:15 Eos # 0.0 10^3/uL (0.0-0.7) 08/07/17 05:15 Baso # 0.0 10^3/uL (0.0-0.1) 08/07/17 05:15 Absolute Nucleated RBC 0.00 x10^3/uL 08/07/17 05:15 Nucleated RBC % 0.0 /100WBC 08/07/17 05:15 Sodium 140 mmol/L (135-145) 08/07/17 05:15 Potassium 4.3 mmol/L (3.5-5.0) 08/07/17 05:15 Chloride 106 mmol/L (101-111) 08/07/17 05:15 Carbon Dioxide 26 mmol/L (21-32) 08/07/17 05:15 Anion Gap 8.0 (6-13) 08/07/17 05:15 BUN 14 mg/dL (6-20) 08/07/17 05:15 Creatinine 0.7 mg/dL (0.6-1.2) 08/07/17 05:15 Estimated GFR (MDRD) 117 (>89) 08/07/17 05:15 Glucose 149 mg/dL (70-100) H 08/07/17 05:15 Lactic Acid 1.4 mmol/L (0.5-2.2) 08/07/17 05:15 Calcium 8.6 mg/dL (8.5-10.3) 08/07/17 05:15 Phosphorus 4.0 mg/dL (2.5-4.6) 08/07/17 05:15 Magnesium 1.9 mg/dL (1.7-2.8) 08/07/17 05:15 Total Bilirubin 0.2 mg/dL (0.2-1.0) 08/07/17 05:15 AST 15 IU/L (10-42) 08/07/17 05:15 ALT 14 IU/L (10-60) 08/07/17 05:15 Alkaline Phosphatase 63 IU/L (42-121) 08/07/17 05:15 Total Protein 6.0 g/dL (6.7-8.2) L 08/07/17 05:15 Albumin 2.7 g/dL (3.2-5.5) L 08/07/17 05:15 Globulin 3.3 g/dL (2.1-4.2) 08/07/17 05:15 Albumin/Globulin Ratio 0.8 (1.0-2.2) L 08/07/17 05:15 - DIAGNOSTIC IMAGING Diagnostic Imaging Results: Final report reviewed Diagnostic Imaging Results Comments: CT abdomen/pelvis Impression: 1. There is hypodensity within the anterior abdominal wall in the periumbilical region which could represent small amount of residual fluid. Interval decrease in volume of fluid in this area. 2. There are thick walled small bowel loops within the mid abdomen. There is small associated fat stranding. Interval decrease in inflammatory change as compared to the prior study. Architectural distortion between the loops of thick walled bowel with ill-defined adjacent soft tissue likely reflects areas of fistulous communication between bowel loops. No intra-abdominal abscess is seen. 3. There is moderate stool within the colon. 4. There is mild hepatic steatosis. 5. There is cholelithiasis. 6. There is mild splenomegaly. - FOLLOW UP Follow Up: Patient is being transferred to the [facility] for higher level of care. There he will be seen by a timber hewer and surgeon for further evaluation of his Crohn's disease with fistulas. The patient may need more aggressive therapy for his Crohn's including surgical intervention which we are unable to provide here at [facility]. The patient is being transferred in stable condition and will hopefully receive the care he needs at the [facility]. The accepting physician was Dr. Hernandez. - TIME SPENT Time Spent in Discharge (Minutes): 45
== END 2017-08-07 12:40 | disposition short-term general hospital (02) | DRG 386 ==
LOC: ED 10:48 → MS2 17:19
PROVIDERS: ADMIT Internal Medicine; ATTEND Internal Medicine
DX: K50.013 Crohn's disease of small intestine with fistula (principal); Z91.19 Patient's noncompliance with other medical treatment and regimen; Z87.891 Personal history of nicotine dependence
CPT/HCPCS: 36415; 74177; 80048; 80053; 83605; 83735; 84100; 85025; 87040; 87070; 87205; 96361; 96365; 96367; 99283; 99284

== ENCOUNTER 2017-09-20 08:51 | Emergency (ER) | payer SELFPAY ==
[2017-09-20 08:59] VITALS: BP 158/129
--- NOTE | 2017-09-20 09:34 | ED Physician Documentation ---
PD HPI SKIN - Stated complaint Stated Complaint: BLEEDING ABSCESS - Chief complaint Chief Complaint: General - History obtained from History obtained from: Patient, Family () - History of Present Illness Timing - onset: Today Quality / character: Draining - Additional information Additional information: The patient is a 56-year-old male with a history of Crohn's disease and enterocutaneous fistula, who is followed by GI at [facility]. He presents today with bleeding from the site. The bleeding began when he awoke this morning and has continued since that time. He is 3 years status post surgery for the enterocutaneous fistula. It has been draining fluid for the past 6 weeks, but is not considered amenable to surgical intervention, and has been followed medically. 4 days ago it stopped draining. The this morning there was a large amount of spontaneous hemorrhagic drainage. He denies any associated pain. He denies fever, nausea or vomiting. Review of Systems Constitutional: denies: Fever Nose: denies: Congestion Throat: denies: Sore throat Cardiac: denies: Chest pain / pressure Respiratory: denies: Dyspnea, Cough GI: denies: Abdominal Pain, Nausea, Vomiting : denies: Dysuria Skin: denies: Rash Musculoskeletal: denies: Back pain Neurologic: denies: Focal weakness, Numbness, Headache PD PAST MEDICAL HISTORY - Past Medical History Cardiovascular: None Respiratory: Sleep apnea Neuro: None Endocrine/Autoimmune: None GI: Ulcers, Crohn's disease : None HEENT: None Psych: None Musculoskeletal: None Derm: None - Past Surgical History Past Surgical History: Yes General: Appendectomy Ortho: Arthroscopic surgery HEENT: Tonsil/Adenoidectomy - Present Medications Home Medications: Ambulatory Orders Medication Instructions Recorded Confirmed Ciprofloxacin HCl [Cipro] 500 mg PO BID 08/29/17 08/29/17 Metronidazole 500 mg PO TID 08/29/17 08/29/17 predniSONE [Prednisone] 20 mg PO DAILY 08/29/17 08/29/17 - Allergies Allergies/Adverse Reactions: Allergies Allergy/AdvReac Type Severity Reaction Status Date / Time Penicillins Allergy Severe "HEART Verified 09/20/17 08:59 STOPPED",SEVERE RASH alcocer AdvReac Unknown Verified 09/20/17 08:59 peanut AdvReac Unknown Verified 08/06/17 11:00 peas AdvReac Unknown Verified 09/20/17 08:59 RAISINS AdvReac Unknown Uncoded 08/18/17 15:55 - Social History Does the pt smoke?: No Smoking Status: Never smoker Does the pt drink ETOH?: No Does the pt have substance abuse?: No - Immunizations Immunizations are current?: No - POLST Patient has POLST: No POLST Status: Full Code PD ED PE NORMAL - Vitals Vital signs reviewed: Yes (Initially hypertensive.) - General General: Alert and oriented X 3, Well developed/nourished - HEENT HEENT: Atraumatic - Cardiac Cardiac: RRR - Respiratory Respiratory: No respiratory distress, Clear bilaterally - Abdomen Abdomen: Normal bowel sounds, Soft, Non tender, Other (The surgical scar is noted in the midline infraumbilical region. There is a small opening of about 4 mm in the inferior one third of the surgical incision site. There is no surrounding erythema. There is no significant drainage currently, and only a few drops can be expressed with compression on the area. Cotton-tipped swab is able to be inserted 2.5 cm. Culture swab was obtained.) - Derm Derm: No rash - Neuro Neuro: Alert and oriented X 3, No motor deficit, Normal speech Results - Vitals Vitals: Oxygen O2 Source Room air - Labs Labs: Microbiology 09/20/17 11:46 Wound Culture - Preliminary Abscess Procedures - Abscess I&D (location) infraumbilical midline Incision: Irrigated, Packed, Culture obtained, Other (Spontaneously drained.) Other: Pt tolerated well, Dressing applied PD MEDICAL DECISION MAKING - ED course Complexity details: reviewed old records, considered differential, d/w patient, d/w family ED course: The patient's presentation is significant for a spontaneously drained incisional abscess in a patient with history of Crohn's disease and enterocutaneous fistula. Probing of the wound does not reveal a fistulous tract , and the patient has no symptoms to suggest intra-abdominal abscess. The abscess cavity was packed with iodoform gauze. I discussed with him and his appropriate wound care, outpatient follow-up, as well as potentially worrisome signs or symptoms that should prompt reevaluation in the emergency department. - Sepsis Event Vital Signs: Oxygen O2 Source Room air Departure - Departure Disposition: 01 Home, Self Care Clinical Impression: Abscess Condition: Stable Instructions: ED Abscess IandD Follow-Up: Mann Villaseñor MD [Primary Care Provider] - Comments: Keep the gauze packing in place in the wound. You can remove about 2 inches per day and snip it off with scissors. Follow-up in wound care clinic next week as planned. Return to the emergency department if increasing redness or swelling, increasing pain, or otherwise worsening symptoms. Discharge Date/Time: 09/20/17 09:44
== END 2017-09-20 09:44 | disposition home or self-care (01) ==
LOC: ED 08:51
DX: L02.216 Cutaneous abscess of umbilicus (principal); K50.90 Crohn's disease, unspecified, without complications; K63.2 Fistula of intestine
CPT/HCPCS: 87070; 87205; 99283

== ENCOUNTER 2017-10-07 14:33 | Outpatient (CLI) | payer SELFPAY | END 2017-10-07 14:34 | disposition home or self-care (01) | LOC: LAB 14:33 | PROVIDERS: ATTEND Internal Medicine | DX: K50.813 Crohn's disease of both small and large intestine with fistula (principal) | CPT/HCPCS: 36415; 81335; 81599; 86480 ==

== ENCOUNTER 2023-04-11 12:28 | Outpatient (CLI) | payer MEDICAID ==
--- NOTE | 2023-04-11 15:30 | Ultrasound Report ---
PROCEDURE: Pelvic Limited INDICATIONS: LLQ MASS TECHNIQUE: Real-time transabdominal scanning was performed of the pelvic organs, with image documentation. COMPARISON: None. FINDINGS: There is a reducible fat and bowel-containing left inguinal hernia visualized in the area of interest . Other: No free pelvic fluid. IMPRESSION: Fat and bowel-containing reducible left inguinal hernia. Reviewed by: Priti Estrella MD on 04/11/2023 3:29 PM PST Approved by: Priti Estrella MD on 04/11/2023 3:29 PM PST Station ID: [id number]
== END 2023-04-11 12:29 | disposition home or self-care (01) ==
LOC: DI 12:28
PROVIDERS: ATTEND Nurse Practitioner Adult Health
DX: K40.90 Unilateral inguinal hernia, without obstruction or gangrene, not specified as recurrent (principal)

== ENCOUNTER 2023-06-05 10:54 | Emergency (ER) | payer MEDICAID ==
--- NOTE | 2023-06-05 11:04 | ED Physician Documentation ---
History of Present Illness - Stated complaint Stated Complaint: - Chief complaint Chief Complaint: Abd Pain - Additonal information Additional information: Patient with history of Crohn's disease abdominal abscesses, enterocutaneous fistulas, sepsis presents emergency department for left groin pain. Patient is a very poor historian it is difficult to gather information from him and his partner who is at bedside. He comes in today for left testicular pain and left groin swelling. Patient says he is having surgery in August but he is unable to follow is having surgery on whether this is related to a hernia or something related to his Crohn's. Patient has been having left testicular pain now for about a month and today has gotten so severe to the point where he is having nausea vomiting. He denies any fevers or chills that he is aware of he is able to urinate without any difficulty denies any new sexual partners no history of STDs. PD PAST MEDICAL HISTORY - Past Medical History Past Medical History: Yes Cardiovascular: None Respiratory: Sleep apnea Neuro: None Endocrine/Autoimmune: None GI: Ulcers, Crohn's disease : None HEENT: None Psych: None Musculoskeletal: None Derm: None - Past Surgical History Past Surgical History: Yes General: Appendectomy Ortho: Arthroscopic surgery HEENT: Tonsil/Adenoidectomy - Present Medications Home Medications: Ambulatory Orders Medication Instructions Recorded Confirmed No Known Home Medications 06/05/23 06/05/23 - Allergies Allergies/Adverse Reactions: Allergies Allergy/AdvReac Type Severity Reaction Status Date / Time Penicillins Allergy Severe "HEART Verified 06/05/23 11:01 STOPPED",SEVERE RASH alcocer AdvReac Unknown Verified 06/05/23 11:01 peanut AdvReac Unknown Verified 06/05/23 11:01 peas AdvReac Unknown Verified 06/05/23 11:01 Raisin [Raisins] AdvReac Unknown Verified 06/05/23 13:46 - Social History Does the pt smoke?: No Smoking Status: Never smoker Does the pt drink ETOH?: No Does the pt have substance abuse?: No - Immunizations Immunizations are current?: No - POLST Patient has POLST: No POLST Status: Full Code PD ED PE NORMAL - Vitals Vital signs reviewed: Yes - General General: Alert and oriented X 3, Other (Patient appears to be quite uncomfortable) - HEENT HEENT: Atraumatic - Cardiac Cardiac: RRR, No murmur, No gallop, Strong equal pulses - Respiratory Respiratory: No respiratory distress, Clear bilaterally - Abdomen Abdomen: Normal bowel sounds, Soft, Non tender, Other (Significant left groin swelling, tenderness with minimal palpation to groin and suprapic region) - 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, 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, L>R), Other - Back Back: No CVA TTP - Derm Derm: Normal color, Warm and dry, No rash Results - Vitals Vitals: Vital Signs - 24 hr 06/05/23 06/05/23 06/05/23 10:58 13:01 15:00 Temperature 36.5 C Heart Rate 85 58 L 75 Respiratory 16 14 18 Rate Blood Pressure 133/83 H 148/90 H 115/74 O2 Saturation 99 99 94 06/05/23 16:09 Temperature Heart Rate 80 Respiratory 16 Rate Blood Pressure 137/85 H O2 Saturation 98 Oxygen O2 Source Room air - Labs Labs: Laboratory Tests 06/05/23 06/05/23 06/05/23 11:14 11:14 11:45 WBC 5.8 RBC 4.82 Hgb 13.9 L Hct 41.6 L MCV 86.3 MCH 28.8 MCHC 33.4 RDW 12.3 Plt Count 145 MPV 11.1 Neut # (Auto) 4.6 Lymph # (Auto) 0.9 L [place] # (Auto) 0.3 Eos # (Auto) 0.1 Baso # (Auto) 0.0 Absolute Nucleated RBC 0.00 Nucleated RBC % 0.0 Sodium 143 Potassium 3.4 L Chloride 110 Carbon Dioxide 27 Anion Gap 6.0 BUN 6 Creatinine 0.9 Estimated GFR (MDRD) 86 L Glucose 100 Calcium 9.5 Magnesium 1.4 L Total Bilirubin 0.9 AST 17 ALT 12 Alkaline Phosphatase 64 Total Protein 6.9 Albumin 4.1 Globulin 2.8 Albumin/Globulin Ratio 1.5 Lipase 13 Urine Color Urine Clarity Urine pH Ur Specific [place] Urine Protein Urine Glucose (UA) Urine Ketones Urine Occult Blood Urine Nitrite Urine Bilirubin Urine Urobilinogen Ur Leukocyte Esterase Ur Microscopic Review Urine Culture Comments Nasal Adenovirus (PCR) NOT DETECTED Nasal B. parapertussis DNA (PCR) NOT DETECTED Nasal Coronavir 229E PCR NOT DETECTED Nasal Coronavir HKU1 PCR NOT DETECTED Nasal Coronavir NL63 PCR NOT DETECTED Nasal Coronavir OC43 PCR NOT DETECTED Nasal Enterovir/Rhinovir PCR NOT DETECTED Nasal Influenza B PCR NOT DETECTED Nasal Influenza A PCR NOT DETECTED Nasal Parainfluen 1 PCR NOT DETECTED Nasal Parainfluen 2 PCR NOT DETECTED Nasal Parainfluen 3 PCR NOT DETECTED Nasal Parainfluen 4 PCR NOT DETECTED Nasal RSV (PCR) NOT DETECTED Nasal B.pertussis DNA PCR NOT DETECTED Nasal C.pneumoniae (PCR) NOT DETECTED Crispin Human Metapneumo PCR NOT DETECTED Nasal M.pneumoniae (PCR) NOT DETECTED Nasal SARS-CoV-2 (PCR) NOT DETECTED 06/05/23 13:45 WBC RBC Hgb Hct MCV MCH MCHC RDW Plt Count MPV Neut # (Auto) Lymph # (Auto) [place] # (Auto) Eos # (Auto) Baso # (Auto) Absolute Nucleated RBC Nucleated RBC % Sodium Potassium Chloride Carbon Dioxide Anion Gap BUN Creatinine Estimated GFR (MDRD) Glucose Calcium Magnesium Total Bilirubin AST ALT Alkaline Phosphatase Total Protein Albumin Globulin Albumin/Globulin Ratio Lipase Urine Color YELLOW Urine Clarity CLEAR Urine pH 6.0 Ur Specific [place] 1.025 Urine Protein NEGATIVE Urine Glucose (UA) NEGATIVE Urine Ketones NEGATIVE Urine Occult Blood NEGATIVE Urine Nitrite NEGATIVE Urine Bilirubin NEGATIVE Urine Urobilinogen 0.2 (NORMAL) Ur Leukocyte Esterase NEGATIVE Ur Microscopic Review NOT INDICATED Urine Culture Comments NOT INDICATED Nasal Adenovirus (PCR) Nasal B. parapertussis DNA (PCR) Nasal Coronavir 229E PCR Nasal Coronavir HKU1 PCR Nasal Coronavir NL63 PCR Nasal Coronavir OC43 PCR Nasal Enterovir/Rhinovir PCR Nasal Influenza B PCR Nasal Influenza A PCR Nasal Parainfluen 1 PCR Nasal Parainfluen 2 PCR Nasal Parainfluen 3 PCR Nasal Parainfluen 4 PCR Nasal RSV (PCR) Nasal B.pertussis DNA PCR Nasal C.pneumoniae (PCR) Crispin Human Metapneumo PCR Nasal M.pneumoniae (PCR) Nasal SARS-CoV-2 (PCR) - Rads (name of study) testicular with doppler Relevant Findings:: Final report received, EMP independent interpretation of test, Other (small right hydrocele, bilateral epididymal head cysts.) abd pelvis ct Relevant Findings:: Final report received, EMP independent interpretation of test, Other (colitis, inguinal hernias, left hernia containing sigmoid colon) PD Medical Decision Making - ED course ED course: 62-year-old male presents emergency department for left groin/testicular pain. Labs are complete CBC does not show any leukocytosis mild anemia, hemoglobin 13.9, hematocrit 41.6. CMP also complete potassium mildly suppressed at 3.4, magnesium 1.4. Urinalysis does not show any hematuria no leukocytes or nitrates. Viral swab negative. Testicular ultrasound was complete and no testicular torsion was visualized and a small right hydrocele and bilateral epididymal head cysts as well as a bowel containing left inguinal hernia. CT abdomen pelvis is also completed for patient's abdominal pain that he is experiencing which revealed moderate colitis involving distal colon patient denies any diarrhea nausea or vomiting. He does have Crohn's disease at this is probably where the colitis is coming in. He has complex ventral and inguinal hernias mostly to the left groin region left hernia containing sigmoid colon. Patient received IV Versed to help with anxiolytic as well as IV Dilaudid to help with pain control and I was able to reduce his left inguinal hernia without any complications. Pain had significantly improved patient is a very poor historian overall but he says that he has an appointment with [facility] in August 20 and he thinks it is for at this inguinal hernia. Patient was told to avoid lifting heavy things and to follow-up with [facility] find out specifically what the surgery is for and to let them know about his ER visit. He was given strict ER return precautions all questions answered safe for discharge at this time. Departure - Departure Disposition: Home, Self Care Clinical Impression: Inguinal hernia Qualifiers: Obstruction and gangrene presence: with gangrene Laterality: unilateral Recurrence: recurrent Qualified Code(s): K40.41 - Unilateral inguinal hernia, with gangrene, recurrent Condition: Good Instructions: ED Hernia Inguinal Comments: Thank you for trusting us with your care we have completed a testicular ultrasound as well as CT scan and we are able to see that you did have an inguinal hernia. Please follow-up with [facility] to find out what kind of surgery you are having in mid August to make sure that it is an inguinal surgery repair. Make sure that you are avoiding lifting anything too heavy to prevent this from happening again if this does happen again you can apply some light gentle pressure to see if you are able to get it to go back in your own. Please come back to the emergency department if you start to notice any fevers or chills or if this happens again you are unable to get it to go back in. Testicular US FINDINGS: Right: Testicle is normal in size at 5.2 x 2.4 x 3.1 cm, and homogenous in echotexture. Epididymis is normal in overall size and morphology. Small epididymal head cyst measuring 0.5 x 0.4 x 0.4 cm. Small hydrocele. No varicoceles. Overlying scrotal skin is normal in thickness. Left: Testicle is normal in size at 4.4 x 2.8 x 3.4 cm cm, and homogeneous in echotexture. Epididymis is normal in overall size and morphology. Small epididymal head cyst measuring 0.7 x 0.7 x 0.9 cm No hydrocele. No varicoceles. Overlying scrotal skin is normal in thickness. Doppler: Color and pulse Doppler demonstrate normal and symmetric arterial flow in both testicles. Redemonstration of left inguinal hernia containing fat and bowel measuring approximately 3.0 x 2.3 cm. IMPRESSION: No sonographic evidence of testicular torsion. Small right hydrocele and bilateral epididymal head cysts. Fat and bowel containing left inguinal hernia. .FINDINGS: Image quality: Diagnostic Lower chest: Bibasilar atelectasis. Left costophrenic angle granuloma. Mild nonspecific distal esophageal wall thickening. Liver: Possible hepatic steatosis. Gallbladder and biliary system: Cholelithiasis. No pathologic dilation Pancreas: No ductal dilation Spleen: Borderline splenomegaly at 14 cm AP dimension Adrenals: Left adrenal thickening. Kidneys: No solid mass or hydronephrosis. There are probably small cysts, too small to characterize. Vessels and lymph nodes: Main portal vein appears patent. There is likely mixing artifact. No abdominal aortic aneurysm. No pathologic lymph nodes by size criteria. Bowel and peritoneum: No evidence of small bowel obstruction. Possible rectal/anal hemorrhoids. And to side anastomosis in the distal colon. Moderate pericolonic fat stranding and wall thickening in the mid to distal descending colon, also involving the sigmoid colon. Suture lines also seen elsewhere. No drainable abscess or pathologic ascites. Body wall: Fat containing complex supraumbilical midline hernias, also likely containing congested omentum. In the region of the left groin, there is a left inguinal hernia containing congested sigmoid and its mesentery, neck measuring 4 cm. Small fat-containing right inguinal hernia also present. Pelvis: Bladder is unremarkable. Prostate is not well evaluated on this study. Bones: No acute or suspicious osseous finding. There are degenerative changes. IMPRESSION: Moderate findings of colitis, particularly involving the distal colon. Postsurgi aubrey changes at multiple sites. Complex ventral and inguinal hernias. Corresponding to the left groin region, the left inguinal hernia contains nonobstructed, but inflamed sigmoid colon. Forms: PCP List Discharge Date/Time: 06/05/23 16:09
[2023-06-05 11:20] LABS: BASOPHILS % (AUTO) 0.2 %; EOSINOPHILS # (AUTO) 0.1 10^3/uL (0.0-0.7); EOSINOPHILS % (AUTO) 1.4 %; HCT - HEMATOCRIT 41.6 % (42.0-52.0); HGB - HEMOGLOBIN 13.9 g/dL (14.0-18.0); LYMPHOCYTES # (AUTO) 0.9 10^3/uL (1.5-3.5); LYMPHOCYTES % (AUTO) 15.3 %; MEAN CORPUSCULAR HEMOGLOBIN 28.8 pg (27.0-31.0); MEAN CORPUSCULAR HGB CONC 33.4 g/dL (32.0-36.0); MEAN CORPUSCULAR VOLUME 86.3 fL (80.0-94.0); MEAN PLATELET VOLUME 11.1 fL (7.4-11.4); MONOCYTES # (AUTO) 0.3 10^3/uL (0.0-1.0); MONOCYTES % (AUTO) 4.8 %; NEUTROPHILS # (AUTO) 4.6 10^3/uL (1.5-6.6); NEUTROPHILS % (AUTO) 78.1 %; PLT - PLATELET COUNT 145 10^3/uL (130-450); RED BLOOD COUNT 4.82 10^6/uL (4.70-6.10); RED CELL DISTRIBUTION WIDTH 12.3 % (12.0-15.0); WHITE BLOOD COUNT 5.8 x10^3/uL (4.8-10.8)
[2023-06-05] MEDS: ONDANSETRON 4 MG/2 ML VIAL IVP STA (11:20)
[2023-06-05] MEDS ORDERED: iohexoL-300 100 ML VIAL ONE (11:42)
[2023-06-05] MEDS: HYDROmorphone 0.5 MG/0.5 ML SYRINGE IVP STA ×3 (11:42→15:28)
[2023-06-05 12:22] LABS: ALBUMIN 4.1 g/dL (3.2-5.5); ALBUMIN/GLOBULIN RATIO 1.5 (1.0-2.2); BILIRUBIN,TOTAL 0.9 mg/dL (0.2-1.0); CALCIUM 9.5 mg/dL (8.5-10.3); CREATININE 0.9 mg/dL (0.6-1.3); MAGNESIUM 1.4 mg/dL (1.7-2.3); POTASSIUM 3.4 mmol/L (3.5-4.5); TOTAL PROTEIN 6.9 g/dL (6.4-8.9)
[2023-06-05] MEDS: MAGNESIUM OXIDE 400 MG TABLET PO STA (12:45)
[2023-06-05 12:53] LABS: B. PARAPERTUSSIS- RESP PCR PAN NOT DETECTED; B. PERTUSSIS- RESP PCR PANEL NOT DETECTED; C. PNEUMONIAE- RESP PCR PANEL NOT DETECTED; CORONAVIRUS 229E-RESP PCR NOT DETECTED; CORONAVIRUS HKU1-RESP PCR NOT DETECTED; CORONAVIRUS NL63-RESP PCR NOT DETECTED; CORONAVIRUS OC43-RESP PCR NOT DETECTED; HUMAN METAPNEUMOVIRUS NOT DETECTED; INFLUENZA A- RESP PCR PANEL NOT DETECTED; INFLUENZA B - RESP PCR PANEL NOT DETECTED; M. PNEUMONIAE- RESP PCR PANEL NOT DETECTED; PARAINFLUENZA VIRUS 1 NOT DETECTED; PARAINFLUENZA VIRUS 2 NOT DETECTED; PARAINFLUENZA VIRUS 3 NOT DETECTED; PARAINFLUENZA VIRUS 4 NOT DETECTED; RHINOVIRUS/ENTEROVIRUS NOT DETECTED; RSV- RESP PCR PANEL NOT DETECTED; SARS-CoV-2 -RESP PCR PANEL NOT DETECTED
[2023-06-05 13:57] LABS: BILIRUBIN,URINE NEGATIVE (NEGATIVE); GLUCOSE, URINE (UA) NEGATIVE (NEGATIVE); KETONES,URINE (UA) NEGATIVE (NEGATIVE); LEUKOCYTE ESTERASE, URINE NEGATIVE (NEGATIVE); NITRITE,URINE NEGATIVE (NEGATIVE); OCCULT BLOOD,URINE NEGATIVE (NEGATIVE); PROTEIN,URINE NEGATIVE (NEGATIVE); UROBILINOGEN,URINE 0.2 (NORMAL) E.U./dL (NORMAL)
[2023-06-05 13:58] LABS: CLARITY,URINE CLEAR (CLEAR)
--- NOTE | 2023-06-05 14:22 | Ultrasound Report ---
PROCEDURE: Testicle w/Doppler INDICATIONS: testicular pain, left TECHNIQUE: Real-time scanning was performed of the scrotum and testicles, with image documentation. Color and p ulse Doppler interrogation was performed of both testicles. COMPARISON: Inguinal hernia ultrasound 04/11/2023. FINDINGS: Right: Testicle is normal in size at 5.2 x 2.4 x 3.1 cm, and homogenous in echotexture. Epididym is is normal in overall size and morphology. Small epididymal head cyst measuring 0.5 x 0.4 x 0.4 cm. Small hydrocele. No varicoceles. Overlying scrotal skin is normal in thickness. Left: Testicle is normal in size at 4.4 x 2.8 x 3.4 cm cm, and homogeneous in echotexture. Epididym is is normal in overall size and morphology. Small epididymal head cyst measuring 0.7 x 0.7 x 0.9 cm No hydrocele. No varicoceles. Overlying scrotal skin is normal in thickness. Doppler: Color and pulse Doppler demonstrate normal and symmetric arterial flow in both testicles. Redemonstration of left inguinal hernia containing fat and bowel measuring approximately 3.0 x 2.3 cm . IMPRESSION: No sonographic evidence of testicular torsion. Small right hydrocele and bilateral epididymal head cysts. Fat and bowel containing left inguinal hernia. Reviewed by: Germaine Martin MD on 06/05/2023 2:20 PM PST Approved by: Germaine Martin MD on 06/05/2023 2:20 PM PST Station ID: [id number]
[2023-06-05] MEDS: MIDAZOLAM 2 MG/2 ML VIAL IVP ONE (14:23)
--- NOTE | 2023-06-05 15:05 | CT Report ---
PROCEDURE: Abdomen/Pelvis W INDICATIONS: left groin swelling CONTRAST: Omni 300 100ml TECHNIQUE: After the administration of intravenous contrast, a CT scan of the abdomen and pelvis was performed. Images were recorded and evaluated at appropriate window settings. Reformats: coronal and sagittal. F or radiation dose reduction, the following was used: automated exposure control, adjustment of mA and /or kV according to patient size. COMPARISON: 08/06/2017 FINDINGS: Image quality: Diagnostic Lower chest: Bibasilar atelectasis. Left costophrenic angle granuloma. Mild nonspecific distal esopha geal wall thickening. Liver: Possible hepatic steatosis. Gallbladder and biliary system: Cholelithiasis. No pathologic dilation Pancreas: No ductal dilation Spleen: Borderline splenomegaly at 14 cm AP dimension Adrenals: Left adrenal thickening. Kidneys: No solid mass or hydronephrosis. There are probably small cysts, too small to characterize. Vessels and lymph nodes: Main portal vein appears patent. There is likely mixing artifact. No abdomin al aortic aneurysm. No pathologic lymph nodes by size criteria. Bowel and peritoneum: No evidence of small bowel obstruction. Possible rectal/anal hemorrhoids. And t o side anastomosis in the distal colon. Moderate pericolonic fat stranding and wall thickening in the mid to distal descending colon, also involving the sigmoid colon. Suture lines also seen elsewhere. No drainable abscess or pathologic ascites. Body wall: Fat containing complex supraumbilical midline hernias, also likely containing congested om entum. In the region of the left groin, there is a left inguinal hernia containing congested sigmoid and its mesentery, neck measuring 4 cm. Small fat-containing right inguinal hernia also present. Pelvis: Bladder is unremarkable. Prostate is not well evaluated on this study. Bones: No acute or suspicious osseous finding. There are degenerative changes. IMPRESSION: Moderate findings of colitis, particularly involving the distal colon. Postsurgical changes at multip le sites. Complex ventral and inguinal hernias. Corresponding to the left groin region, the left inguinal herni a contains nonobstructed, but inflamed sigmoid colon. Other findings as above. Reviewed by: Johnson Mcclure MD on 06/05/2023 3:03 PM PST Approved by: Johnson Mcclure MD on 06/05/2023 3:03 PM PST Station ID: [id number]
[2023-06-05] MEDS: iohexoL-300 100 ML VIAL IVP ONE (15:38)
[2023-06-05 16:18] VITALS: BP 137/85; O2SAT 98
== END 2023-06-05 16:09 | disposition home or self-care (01) ==
LOC: ED 10:54
DX: K40.41 Unilateral inguinal hernia, with gangrene, recurrent (principal); K52.9 Noninfective gastroenteritis and colitis, unspecified; K50.90 Crohn's disease, unspecified, without complications
CPT/HCPCS: 36415; 74177; 76870; 80053; 81003; 83690; 83735; 85025; 87633; 93975; 96374; 96375; 96376; 99284; 99285; A9270; J1170; Q9967; 81001; 87086

== ENCOUNTER 2023-06-11 13:30 | Emergency (ER) | payer MEDICAID ==
[2023-06-11 14:15] LABS: BASOPHILS % (AUTO) 0.2 %; EOSINOPHILS # (AUTO) 0.1 10^3/uL (0.0-0.7); EOSINOPHILS % (AUTO) 1.7 %; HCT - HEMATOCRIT 42.9 % (42.0-52.0); HGB - HEMOGLOBIN 14.1 g/dL (14.0-18.0); LYMPHOCYTES # (AUTO) 1.3 10^3/uL (1.5-3.5); LYMPHOCYTES % (AUTO) 19.2 %; MEAN CORPUSCULAR HEMOGLOBIN 28.5 pg (27.0-31.0); MEAN CORPUSCULAR HGB CONC 32.9 g/dL (32.0-36.0); MEAN CORPUSCULAR VOLUME 86.8 fL (80.0-94.0); MEAN PLATELET VOLUME 11.4 fL (7.4-11.4); MONOCYTES # (AUTO) 0.4 10^3/uL (0.0-1.0); MONOCYTES % (AUTO) 5.4 %; NEUTROPHILS # (AUTO) 4.8 10^3/uL (1.5-6.6); NEUTROPHILS % (AUTO) 73.3 %; PLT - PLATELET COUNT 141 10^3/uL (130-450); RED BLOOD COUNT 4.94 10^6/uL (4.70-6.10); RED CELL DISTRIBUTION WIDTH 12.3 % (12.0-15.0); WHITE BLOOD COUNT 6.5 x10^3/uL (4.8-10.8)
[2023-06-11 14:35] LABS: ALBUMIN 4.3 g/dL (3.2-5.5); ALBUMIN/GLOBULIN RATIO 1.5 (1.0-2.2); ALKALINE PHOSPHATASE 60 IU/L (42-121); ALT ALANINE AMINOTRANSFERASE 17 IU/L (10-60); AST ASPARTATE AMINOTRANSFERASE 23 IU/L (10-42); BILIRUBIN,TOTAL 1.3 mg/dL (0.2-1.0); BUN - BLOOD UREA NITROGEN 9 mg/dL (6-20); CALCIUM 9.3 mg/dL (8.5-10.3); CARBON DIOXIDE - CO2 29 mmol/L (21-32); CHLORIDE 104 mmol/L (101-111); CREATININE 0.8 mg/dL (0.6-1.3); GFR - MDRD 98 (>89); GLUCOSE 109 mg/dL (74-104); POTASSIUM 3.1 mmol/L (3.5-4.5); SODIUM 139 mmol/L (135-145); TOTAL PROTEIN 7.2 g/dL (6.4-8.9)
[2023-06-11 14:47] LABS: LIPASE < 10 U/L (11-82)
--- NOTE | 2023-06-11 17:07 | ED Physician Documentation ---
PD HPI ABD PAIN - Stated complaint Stated Complaint: LOWER BACK PX, - Chief complaint Chief Complaint: Abd Pain - History obtained from History obtained from: Patient - Additional information Additional information: HAS HX [facility]S KNOWN L INGUINAL HERNIA OUT TODAY WIC COULD NOT REDUCE. PD PAST MEDICAL HISTORY - Past Medical History Past Medical History: Yes Cardiovascular: None Respiratory: Sleep apnea Neuro: None Endocrine/Autoimmune: None GI: Ulcers, Crohn's disease, Other : None HEENT: None Psych: None Musculoskeletal: None Derm: None - Past Surgical History Past Surgical History: Yes General: Appendectomy Ortho: Arthroscopic surgery HEENT: Tonsil/Adenoidectomy - Present Medications Home Medications: Ambulatory Orders Medication Instructions Recorded Confirmed HYDROcod/ACETAM 5/325 [[place] 5/325] 1 - 2 tab PO Q6H PRN #15 tablet 06/11/23 - Allergies Allergies/Adverse Reactions: Allergies Allergy/AdvReac Type Severity Reaction Status Date / Time Penicillins Allergy Severe "HEART Verified 06/11/23 13:48 STOPPED",SEVERE RASH alcocer AdvReac Unknown Verified 06/11/23 13:48 peanut AdvReac Unknown Verified 06/11/23 13:48 peas AdvReac Unknown Verified 06/11/23 13:48 Raisin [Raisins] AdvReac Unknown Verified 06/11/23 13:48 - Social History Does the pt smoke?: No Smoking Status: Never smoker Does the pt drink ETOH?: No Does the pt have substance abuse?: No - Immunizations Immunizations are current?: Yes - POLST Patient has POLST: No POLST Status: Full Code PD ED PE NORMAL - Vitals Vital signs reviewed: Yes - General General: Alert and oriented X 3, No acute distress - Abdomen Abdomen: Non tender, Other (NO DIFFUSE TTP. INCRACERATED LIH WITHOUT SKIN CHANGES.) - Neuro Neuro: Alert and oriented X 3 Results - Vitals Vitals: Vital Signs - 24 hr 06/11/23 06/11/23 13:49 17:12 Temperature 36.4 C L Heart Rate 74 66 Respiratory 18 18 Rate Blood Pressure 138/84 H 151/99 H O2 Saturation 99 100 Oxygen O2 Source Room air - Labs Labs: Laboratory Tests 06/11/23 06/11/23 14:10 14:10 WBC 6.5 RBC 4.94 Hgb 14.1 Hct 42.9 MCV 86.8 MCH 28.5 MCHC 32.9 RDW 12.3 Plt Count 141 MPV 11.4 Neut # (Auto) 4.8 Lymph # (Auto) 1.3 L [place] # (Auto) 0.4 Eos # (Auto) 0.1 Baso # (Auto) 0.0 Absolute Nucleated RBC 0.00 Nucleated RBC % 0.0 Sodium 139 Potassium 3.1 L Chloride 104 Carbon Dioxide 29 Anion Gap 6.0 BUN 9 Creatinine 0.8 Estimated GFR (MDRD) 98 Glucose 109 H Calcium 9.3 Total Bilirubin 1.3 H AST 23 ALT 17 Alkaline Phosphatase 60 Total Protein 7.2 Albumin 4.3 Globulin 2.9 Albumin/Globulin Ratio 1.5 Lipase < 10 L PD Medical Decision Making - ED course ED course: HAS REFERRAL TO [facility]. i WAS ABLE TO REDUCE MANUALLY Patient requested local surgery, I did talk with Dr. Callejas and we discussed the case and he said he would be happy to follow-up with him. Subsequently the her joshua did come out again and he was counseled how to reproduce this. It was clearly an easily sliding hernia. Departure - Departure Disposition: 01 Home, Self Care Clinical Impression: Incarcerated hernia Condition: Good Record reviewed to determine appropriate education?: Yes Instructions: ED Hernia Inguinal Follow-Up: Bacilio Callejas MD [Provider Admit Priv/Credential] - Prescriptions: HYDROcod/ACETAM 5/325 [[place] 5/325] 1 - 2 tab PO Q6H PRN #15 tablet PRN Reason: Pain Comments: YOU WERE SEEN FOR AN INCARCERATED LEFT INGUINAL HERNIA WHICH WERE ABLE TO REDUCE. fOLLOWUP AT [facility]. rETURN IF WORSE Forms: PCP List, Activity restrictions Discharge Date/Time: 06/11/23 17:30
[2023-06-11] MEDS: KETOROLAC 60 MG/2 ML VIAL IM STA (17:13)
[2023-06-11 17:19] VITALS: BP 151/99; O2SAT 100
== END 2023-06-11 17:30 | disposition home or self-care (01) ==
LOC: ED 13:30
DX: K40.90 Unilateral inguinal hernia, without obstruction or gangrene, not specified as recurrent (principal)
CPT/HCPCS: 36415; 80053; 83690; 85025; 96372; 99283; 99284

== ENCOUNTER 2023-06-14 09:45 | Day surgery (SDC) | payer MEDICAID ==
[2023-06-14] MEDS ORDERED: CLINDAMYCIN 900 MG/50 ML 900 MG/50 ML BAG IV ONE (10:41)
[2023-06-14 10:59] VITALS: O2SAT 100
[2023-06-14] MEDS: LACTATED RINGERS 1,000 ML IV ONE (11:17)
[2023-06-14] MEDS ORDERED: BUPIVACAINE 0.25% PF 30 ML VIAL ONE ×2 (12:41→13:53)
[2023-06-14] MEDS ORDERED: LIDOCAINE-MPF 1% 30 ML VIAL ONE (12:41)
[2023-06-14] MEDS ORDERED: ONDANSETRON 4 MG/2 ML VIAL ONE (12:50)
[2023-06-14] MEDS ORDERED: PROPOFOL 200 MG/20 ML VIAL IVP ONE (12:50)
[2023-06-14] MEDS ORDERED: fentaNYL 100 MCG/2 ML VIAL ONE (12:50)
[2023-06-14] MEDS ORDERED: MIDAZOLAM 2 MG/2 ML VIAL ONE (12:50)
[2023-06-14] MEDS ORDERED: LIDOCAINE-PF 2% 10 ML AMP SUBQ ONE (12:50)
[2023-06-14] MEDS ORDERED: KETOROLAC 30 MG/ML VIAL ONE (12:50)
--- NOTE | 2023-06-14 13:18 | ANESTHESIA ---
Pre-Anesthesia VS, & Labs - Diagnosis left inguinal hernia - Procedure left inguinal hernia repair Vital Signs: Temp Pulse Resp BP Pulse Ox O2 Flow Rate 36.2 C L 54 L 11 L 150/86 H 100 06/14/23 10:57 06/14/23 10:57 06/14/23 10:57 06/14/23 10:57 06/14/23 10:57 Height: 5 ft 10 in Weight (kg): 80 kg Body Mass Index: 25.2 BMI Classification: Overweight - NPO >8 hours Home Medications and Allergies Allergies/Adverse Reactions: Allergies Allergy/AdvReac Type Severity Reaction Status Date / Time Penicillins Allergy Severe "HEART Verified 06/11/23 13:48 STOPPED",SEVERE RASH alcocer AdvReac Unknown Verified 06/11/23 13:48 peanut AdvReac Unknown Verified 06/11/23 13:48 peas AdvReac Unknown Verified 06/11/23 13:48 Raisin [Raisins] AdvReac Unknown Verified 06/11/23 13:48 Anes History & Medical History - Anesthetic History Anesthesia Complications: reports: No previous complications - Medical History Cardiovascular: reports: None Pulmonary: reports: Sleep apnea Gastrointestinal: reports: Ulcers, Crohn's disease, Other Urinary: reports: None Neuro: reports: None Musculoskeletal: reports: None Endocrine/Autoimmune: reports: None Blood Disorders: reports: None Skin: reports: None Smoking Status: Never smoker - Surgical History General: reports: Appendectomy Eyes Ears Nose Throat (EENT): reports: Tonsil/Adenoidectomy Orthopedic: reports: Arthroscopic surgery Exam General: Alert, Oriented x3 Dental: WNL Mouth Opening: Greater than 4 Fingerbreadths Neck Mobility: Normal Mallampati classification: II Thyromental Distance: greater than 6 cm Respiratory: Lungs clear Cardiovascular: Regular rate Plan Anesthesia Type: General Consent for Procedure(s) Verified and Reviewed: Yes Code Status: Attempt Resuscitation ASA classification: 2-Mild systemic disease Is this case an emergency?: No
[2023-06-14] MEDS ORDERED: METOCLOPRAMIDE 10 MG/2 ML VIAL IVP PRN (13:20)
[2023-06-14] MEDS ORDERED: ATROPINE ABBOJECT 1 MG/10 ML SYRINGE IVP PRN (13:20)
[2023-06-14] MEDS ORDERED: fentaNYL 100 MCG/2 ML VIAL IVP PRN (13:20)
[2023-06-14] MEDS ORDERED: HYDROmorphone 0.5 MG/0.5 ML SYRINGE IVP PRN (13:20)
[2023-06-14] MEDS ORDERED: ONDANSETRON 4 MG/2 ML VIAL IVP PRN (13:20)
[2023-06-14] MEDS ORDERED: ePHEDrine 50 MG/ML VIAL IVP PRN (13:20)
[2023-06-14] MEDS ORDERED: MORPHINE 2 MG/ML CARPUJECT IVP PRN (13:20)
[2023-06-14] MEDS ORDERED: NALOXONE 0.4 MG/ML VIAL IVP PRN (13:20)
[2023-06-14] MEDS: BUPIVACAINE 0.25% PF 30 ML VIAL SUBQ ONE (13:55)
[2023-06-14] MEDS ORDERED: LACTATED RINGERS 1,000 ML IV SCH (14:00)
[2023-06-14] MEDS: LACTATED RINGERS 600 ML IV ONE (15:12)
[2023-06-14] MEDS ORDERED: HYDROcod/ACETAM 5/325 MG TABLET PO PRN (15:18)
--- NOTE | 2023-06-14 15:23 | OPERATIVE REPORT ---
Operative Report - General Procedure Date: 06/14/23 Planned Procedure: open repair left inguinal hernia Pre-Op Diagnosis: large symptomatic inguinal hernia Procedure Performed: open repair left incarcerated slider type hernia Post Op Diagnosis: incarcerated slider type inguinal hernia with colon - Procedure Note Primary Surgeon: carmen law Anesthesia Technique: General LMA, Local Pathology: not sent Estimated Blood Loss (mL): 5 Drain/Tube Type: Other (none) Indications: painful hernia Findings: as above. branching ilioinguinal nerve removed Complications: none - Other Other Information/Narrative: The patient was properly identified brought to the operating room and placed in supine position. Laryngeal mask anesthesia was induced. He was prepped and draped in a sterile fashion and given preoperative antibiotics. A 5 cm incision was made in the direction of Luz Maria's lines just cephalad of the pubic tubercle. Dissection proceeded with cutting current. The superficial epigastric vein was identified clamped divided and tied with 2-0 silk. Dissection proceeded down to the aponeurosis. This was opened in the direction of its fibers extending to the external ring. He had significant scar tissue present and his ilioinguinal nerve was scarred and branching. The nerve was excised back to musculature. The cord structures with hernia sac were mobilized and brought up. Scar tissue was released with cautery. He had a very large indirect hernia sac. Dense scar tissue was present. Cord structures and adipose tissue was carefully peeled away. The hernia sac was then opened. Incarcerated sigmoid colon was present. He had a slider type indirect hernia with colon making up a portion of the hernia sac. The colon was sharply mobilized and further reduced. Hernia sac was closed from within with a 2-0 silk pursestring suture. Hernia sac was then excised. Mesh was cut to size and placed Shekhar fashion. Polypropylene mesh was used. It was secured with multiple interrupted 0 Ethibond sutures. Sutures were placed at the pubic tubercle along the shelving border of Poupart's ligament and medially along musculature fascia of the internal oblique. Care was taken to not incorporate the ilio hypogastric nerve which lay just medial. The medial tail of the mesh was secured to the shelving border of Poupart's ligament with 3 interrupted 0 Ethibond sutures. An additional suture was placed in the crotch of the mesh recreating and a ring of appropriate size. The aponeurosis was closed with a running 2-0 Vicryl suture. Evangelina's was closed with interrupted 3-0 Vicryl suture. Buried interrupted subdermal 3-0 Vicryl sutures were then placed. Skin was closed with a running 4-0 Monocryl subcuticular suture. Dressing was applied. He tolerated the procedure very well was awakened and brought to recovery in good condition.
[2023-06-14] MEDS: HYDROcod/ACETAM 5/325 MG TABLET ONE (15:47)
[2023-06-14 15:52] VITALS: BP 141/91
--- NOTE | 2023-06-14 17:29 | ANESTHESIA POST OP EVALUATION ---
Anesthesia Post Eval - Post Anesthesia Eval Vitals: Last Vital Signs Temp 36.5 C 06/14/23 15:31 Pulse 54 L 06/14/23 15:44 Resp 14 06/14/23 15:44 BP 141/91 H 06/14/23 15:44 Pulse Ox 100 06/14/23 15:44 O2 Flow Rate CV Function Including HR & BP: Stable Pain Control: Satisfactory Nausea & Vomiting: Negative Mental Status: Baseline Respiratory Status: Airway Patent Hydration Status: Satisfactory Anesthesia Complications: None
== END 2023-06-14 09:46 | disposition home or self-care (01) ==
LOC: SDS 09:45
PROVIDERS: ATTEND Surgery
DX: K40.30 Unilateral inguinal hernia, with obstruction, without gangrene, not specified as recurrent (principal); G47.30 Sleep apnea, unspecified
CPT/HCPCS: 49507; A9270; C1781; J7120

== ENCOUNTER 2023-07-31 08:00 | Outpatient (CLI) | payer MEDICAID ==
[2023-07-31 16:18] LABS: BILIRUBIN,URINE NEGATIVE (NEGATIVE); GLUCOSE, URINE (UA) NEGATIVE (NEGATIVE); KETONES,URINE (UA) NEGATIVE (NEGATIVE); LEUKOCYTE ESTERASE, URINE NEGATIVE (NEGATIVE); NITRITE,URINE NEGATIVE (NEGATIVE); OCCULT BLOOD,URINE TRACE-INTA (NEGATIVE); PROTEIN,URINE TRACE mg/dL (NEGATIVE); UROBILINOGEN,URINE 0.2 (NORMAL) E.U./dL (NORMAL)
[2023-07-31 16:29] LABS: AMORPHOUS SEDIMENT,UR Marked /LPF; BACTERIA,URINE None Seen /HPF (None Seen); CLARITY,URINE CLOUDY (CLEAR); RBC,URINE None Seen /HPF (0-5); SQUAMOUS EPITHELIAL CELL,UR NONE SEEN (<= Few); WBC,URINE 0-3 /HPF (0-3)
== END 2023-07-31 23:59 | disposition home or self-care (01) ==
LOC: LAB.WCP 08:00
PROVIDERS: ATTEND Urology
DX: N50.3 Cyst of epididymis (principal)
CPT/HCPCS: 81001; 87086

== ENCOUNTER 2023-08-12 08:36 | Outpatient (CLI) | payer MEDICAID ==
[2023-08-12 08:48] LABS: BASOPHILS % (AUTO) 0.4 %; EOSINOPHILS # (AUTO) 0.2 10^3/uL (0.0-0.7); EOSINOPHILS % (AUTO) 3.8 %; HCT - HEMATOCRIT 44.9 % (42.0-52.0); HGB - HEMOGLOBIN 14.7 g/dL (14.0-18.0); LYMPHOCYTES # (AUTO) 1.2 10^3/uL (1.5-3.5); MEAN CORPUSCULAR HEMOGLOBIN 28.4 pg (27.0-31.0); MEAN CORPUSCULAR HGB CONC 32.7 g/dL (32.0-36.0); MEAN CORPUSCULAR VOLUME 86.7 fL (80.0-94.0); MEAN PLATELET VOLUME 11.2 fL (7.4-11.4); MONOCYTES # (AUTO) 0.3 10^3/uL (0.0-1.0); MONOCYTES % (AUTO) 5.6 %; NEUTROPHILS # (AUTO) 3.8 10^3/uL (1.5-6.6); NEUTROPHILS % (AUTO) 68.2 %; PLT - PLATELET COUNT 118 10^3/uL (130-450); RED BLOOD COUNT 5.18 10^6/uL (4.70-6.10); RED CELL DISTRIBUTION WIDTH 12.3 % (12.0-15.0); WHITE BLOOD COUNT 5.5 x10^3/uL (4.8-10.8)
[2023-08-12 09:07] LABS: ALBUMIN 4.4 g/dL (3.2-5.5); ALBUMIN/GLOBULIN RATIO 1.5 (1.0-2.2); BILIRUBIN,TOTAL 1.2 mg/dL (0.2-1.0); CALCIUM 9.5 mg/dL (8.5-10.3); CREATININE 0.8 mg/dL (0.6-1.3); POTASSIUM 3.4 mmol/L (3.5-4.5); TOTAL PROTEIN 7.3 g/dL (6.4-8.9)
== END 2023-08-12 08:37 | disposition home or self-care (01) ==
LOC: LAB 08:36
DX: K50.90 Crohn's disease, unspecified, without complications (principal)
CPT/HCPCS: 36415; 80053; 85025

== ENCOUNTER 2023-08-12 18:45 | Outpatient (CLI) | payer MEDICAID ==
--- NOTE | 2023-08-13 10:23 | Ultrasound Report ---
PROCEDURE: Testicle INDICATIONS: LEFT TESTICLE SWELLING TENDERNESS TECHNIQUE: Real-time scanning was performed of the scrotum and testicles, with image documentation. Color and p ulse Doppler interrogation was performed of both testicles. COMPARISON: 06/05/2023. FINDINGS: Right: Testicle is normal in size at 5.0 x 1.9 x 3.6 cm, and homogenous in echotexture. Epididymis is normal in overall size and morphology. Epididymal head cyst measuring 5 mm. Small hydrocele. No va ricoceles. Overlying scrotal skin is normal in thickness. Left: Testicle is normal in size at 4.2 x 2.1 x 3.5 cm, and homogeneous in echotexture. Rete testis present. Epididymis is normal in overall size and morphology. Epididymal head cyst measuring 9 mm. Small hydrocele. No varicoceles. Overlying scrotal skin is normal in thickness. Doppler: Color and pulse Doppler demonstrate normal and symmetric arterial flow in both testicles. IMPRESSION: No evidence of torsion or infection. Resolved left inguinal hernia. Small testicular hydroceles. Subcentimeter, bilateral epididymal head cysts. Reviewed by: Vamsi Pugh MD on 08/13/2023 10:21 AM PDT Approved by: Vamsi Pugh MD on 08/13/2023 10:21 AM PDT Station ID: [id number]
== END 2023-08-12 18:46 | disposition home or self-care (01) ==
LOC: DI 18:45
DX: N43.3 Hydrocele, unspecified (principal); N50.3 Cyst of epididymis